=== PATIENT | male | born 1965 | race Caucasian/White ===

== ENCOUNTER → 2016-07-01 | Outpatient (REF) | payer OTHER ==
[~2016-07-01] MED LIST: /AMIO20TA OR; /LOR25TA PO; ADDE10CA3 PO; ADDE10TA OR; ADDE30CA PO; ADDERALL PO; AMLO10TAB OR; AMLO5TAB2 PO; AMPH20TA PO; ASPI325T OR; ASPI325T PO; ATEN25TA PO; ATEN50TA2 OR; ATEN50TA2 PO; ATOR40TA PO; BYST10TA PO; CITA40TA4 PO; COMBINATION CREAM TOP; COZA100T OR; FEOSOL OR; GABA300C2 PO; GEMF600T PO; HYDR12.55 PO; HYDR25TA6 PO; IBUP600T OR; LIPI20TA PO; LOSA100T36 PO; METF500T PO; NEUR100C PO; NORC7.5T PO; OMEP20CA3 PO; PERC5TAB8 OR; [UNRECOGNIZED DRUG - CODE] TD
== END ==
LOC: M LAB REF 16:14
PROVIDERS: ATTEND Nurse Practitioner Family
DX: E29.1 Testicular hypofunction (principal)

== ENCOUNTER → 2016-07-28 | Outpatient (REF) | payer OTHER ==
[2016-07-28 20:53] LABS: ANION GAP 8 MEQ/L (8-16); BLOOD UREA NITROGEN 14 MG/DL (7-18); CALCIUM LEVEL 9.6 MG/DL (8.5-10.1); CARBON DIOXIDE LEVEL 32 MEQ/L (21-32); CHLORIDE LEVEL 97 MEQ/L (98-107); CREATININE FOR GFR 0.94 MG/DL (0.70-1.30); GLOMERULAR FILTRATION RATE > 60.0 (>56); GLUCOSE, FASTING 122 MG/DL (70-105); POTASSIUM SERUM 4.2 MEQ/L (3.5-5.1); SODIUM LEVEL 137 MEQ/L (136-145)
== END ==
LOC: M LABDRWAD 09:10
PROVIDERS: ATTEND Nurse Practitioner Family
DX: M54.42 Lumbago with sciatica, left side (principal)

== ENCOUNTER → 2016-07-30 | Outpatient (CLI) | payer OTHER ==
--- NOTE | 2016-07-30 13:43 | REP ---
CT LUMBAR SPINE WITHOUT CONTRAST: HISTORY: Left sciatica. There is no disc bulge or herniation at the L1-2 level. The L1 nerves exit the neural foramina without compression. A diffuse disc bulge is present at the L2-3 level. There is minimal compression of the thecal sac. The L2 nerves exit the neural foramina without compression. A diffuse disc bulge is present at the L3-4 level. There is hypertrophy of the ligamenta flava and posterior articulating facets. These findings produce mild central canal stenosis. There is compression of the left L3 nerve in the neural foramen. The right L3 nerve exits the neural foramen without compression. A diffuse disc bulge and small central disc protrusion are present at the L4-5 level. There is hypertrophy of the ligamenta flava and posterior articulating facets. These findings produce mild central canal stenosis. There is compression of the right L4 nerve in the neural foramen. The left L4 nerve exits the neural foramen without compression. A diffuse disc bulge is present at the L5-S1 level. There is minimal compression of the thecal sac. There is hypertrophy of the posterior articulating facets. There is compression of the L5 nerves in the neural foramina. The L3-4 through L5-S1 intervertebral discs are decreased in height. Vacuum phenomenon is present at the L4-5 level. These findings are consistent with disc degeneration. There is no subluxation. A dorsal column stimulator enters the spinal canal at the T12-L1 level. IMPRESSION: 1. Diffuse disc bulge at the L2-3 and L5-S1 levels with minimal thecal sac compression. There is compression of the L5 nerves in the neural foramina. 2. Mild central canal stenosis at the L3-4 level secondary to disc bulge, ligamentous and facet hypertrophy. There is compression of the left L3 nerve in the neural foramen. 3. Mild central canal stenosis at the L4-5 level secondary to disc bulge, disc protrusion, ligamentous and facet hypertrophy. There is compression of the right L4 nerve in the neural foramen. Signed by Ferny Crawford MD 07/30/2016 01:55 P
== END ==
LOC: M RAD 12:45
PROVIDERS: ATTEND Nurse Practitioner Family
DX: M54.42 Lumbago with sciatica, left side (principal); M51.26 Other intervertebral disc displacement, lumbar region; M51.27 Other intervertebral disc displacement, lumbosacral region; M48.06 Spinal stenosis, lumbar region

== ENCOUNTER → 2016-08-11 | Outpatient (REF) | payer OTHER | LOC: M LABDRWAD 12:44 | PROVIDERS: ATTEND Nurse Practitioner Family | DX: E29.1 Testicular hypofunction (principal) ==

== ENCOUNTER → 2016-10-28 | Outpatient (CLI) | payer OTHER ==
[~2016-10-28] VITALS: Ht 180.3 cm; Wt 95.3 kg
[~2016-10-28] MED LIST changes: +CYCL10TA PO; +GLIM2TAB PO; +GLUCAGON FOR INJ 1 MG VIAL (J1610) As Ordered ONE; +IBUP800T23 PO; +NS 1,000 ML IV SCH; +PROPOFOL 200 MG/20 ML VIAL As Ordered ONE; +TESTPOW5 TOP; +TRAM50TA2 PO
--- NOTE | 2016-10-28 13:16 | ROOR ---
Patient Name: Rosa Sanches Procedure Date: 10/28/2016 12:17 PM Date of : 1965 Age: 50 Room: [facility] Gender: Male Note Status: Finalized Procedure: Colonoscopy Indications: Screening for colorectal malignant neoplasm Providers: Kj MONAE MD Referring MD: Julius Elliott NP Requesting Provider: Medicines: Monitored Anesthesia Care Complications: No immediate complications. Procedure: Pre-Anesthesia Assessment: - The heart rate, respiratory rate, oxygen saturations, blood pressure, adequacy of pulmonary ventilation, and response to care were monitored throughout the procedure. The Colonoscope was introduced through the anus and advanced to the cecum, identified by appendiceal orifice and ileocecal valve. The colonoscopy was performed without difficulty. The patient tolerated the procedure well. The quality of the bowel preparation was good. Findings: The perianal and digital rectal examinations were normal. A polypoid medium-sized mass was found in the proximal ascending colon. The mass measured three cm in length. The polyp was removed with a hot snare and The polyp was removed with a piecemeal technique using a hot snare. Polyp resection was likely incomplete, and the resected tissue was partially retrieved. To prevent bleeding after the polypectomy, six hemostatic clips were successfully placed. There was no bleeding at the end of the procedure. A 15 mm polyp was found in the splenic flexure. The polyp was semi-sessile. The polyp was removed with a piecemeal technique using a cold snare. Resection was complete, and retrieval was complete. Area was successfully injected with 5 mL Raquel ink for tattooing. A 10 mm polyp was found in the recto-sigmoid colon. The polyp was pedunculated. The polyp was removed with a hot snare. Resection and retrieval were complete. To prevent bleeding after the polypectomy, one hemostatic clip was successfully placed. There was no bleeding at the end of the procedure. Two sessile polyps were found in the sigmoid colon. The polyps were 3 to 4 mm in size. These polyps were removed with a cold snare. Resection and retrieval were complete. Impression: - Likely benign polypoid mass/tumor in the proximal ascending colon. Tissue was partially removed. Clips were placed. - One 15 mm polyp at the splenic flexure, removed piecemeal using a cold snare. Resected and retrieved. tattooed/Injected. - One 10 mm polyp at the recto-sigmoid colon, removed with a hot snare. Resected and retrieved. Clip was placed. - Two 3 to 4 mm polyps in the sigmoid colon, removed with a cold snare. Resected and retrieved. Recommendation: - If the pathology report is benign, then repeat colonoscopy for surveillance after piecemeal polypectomy in 4 months. - If the pathology report is malignant, then refer to a surgeon. - Telephone endoscopist for pathology results in 2 weeks. - No ibuprofen, naproxen, or other non-steroidal anti-inflammatory drugs for 10 days after polyp removal. Kj Monae MD Kj MONAE MD 10/28/2016 1:16:04 PM This report has been signed electronically. Number of Addenda: 0 Note Initiated On: 10/28/2016 12:17 PM Estimated Blood Loss: Estimated blood loss: none.
[2016-10-28 13:37] VITALS: BP 139/100
== END | disposition home or self-care (01) ==
LOC: M OPP 10:55
PROVIDERS: ATTEND Internal Medicine Gastroenterology
DX: Z12.11 Encounter for screening for malignant neoplasm of colon (principal); D49.0 Neoplasm of unspecified behavior of digestive system; D12.3 Benign neoplasm of transverse colon; D12.7 Benign neoplasm of rectosigmoid junction; D12.5 Benign neoplasm of sigmoid colon; I10 Essential (primary) hypertension; E78.5 Hyperlipidemia, unspecified; R60.0 Localized edema; E11.9 Type 2 diabetes mellitus without complications; R12 Heartburn; R06.09 Other forms of dyspnea; M19.90 Unspecified osteoarthritis, unspecified site; M54.9 Dorsalgia, unspecified; Z87.09 Personal history of other diseases of the respiratory system; Z87.39 Personal history of other diseases of the musculoskeletal system and connective tissue; Z79.899 Other long term (current) drug therapy; Z79.84 Long term (current) use of oral hypoglycemic drugs; Z80.0 Family history of malignant neoplasm of digestive organs

== ENCOUNTER → 2016-11-02 | Outpatient (CLI) | payer OTHER ==
[~2016-11-02] MED LIST changes: -GLUCAGON FOR INJ 1 MG VIAL (J1610) As Ordered ONE; -NS 1,000 ML IV SCH; -PROPOFOL 200 MG/20 ML VIAL As Ordered ONE
[2016-11-02 11:29] LABS: INR 0.93
[2016-11-02 11:30] LABS: MEAN CORPUSCULAR HEMOGLOBIN 33.5 pg (27.0-33.0); MEAN CORPUSCULAR HGB CONC 36.1 g/dl (32.0-36.5); MEAN CORPUSCULAR VOLUME 92.7 fl (80.0-96.0); RED CELL DISTRIBUTION WIDTH 13.3 % (11.5-14.5); WHITE BLOOD COUNT 8.9 K/mm3 (4.0-10.0)
[2016-11-02 12:22] LABS: ALBUMIN 3.9 GM/DL (3.2-5.2); ALBUMIN/GLOBULIN RATIO 1.18 (1.00-1.93); ALKALINE PHOSPHATASE 111 U/L (45-117); ALT/SGPT 28 U/L (12-78); ANION GAP 12 MEQ/L (8-16); AST/SGOT 16 U/L (15-37); BILIRUBIN,TOTAL 0.8 MG/DL (0.2-1.0); BLOOD UREA NITROGEN 9 MG/DL (7-18); CALCIUM LEVEL 9.5 MG/DL (8.5-10.1); CARBON DIOXIDE LEVEL 29 MEQ/L (21-32); CHLORIDE LEVEL 96 MEQ/L (98-107); CREATININE FOR GFR 0.89 MG/DL (0.70-1.30); GLOMERULAR FILTRATION RATE > 60.0 (>56); GLUCOSE, FASTING 176 MG/DL (70-105); POTASSIUM SERUM 3.9 MEQ/L (3.5-5.1); SODIUM LEVEL 137 MEQ/L (136-145); TOTAL PROTEIN 7.2 GM/DL (6.4-8.2)
--- NOTE | 2016-11-03 05:49 | ECGEPIP ---
Stationary ECG Study [facility] Test Date: 2016-11-02 Pat Name: RICHARD COLES Department: [facility] Room: - Gender: M [employer]: : 1965 Requested By: Uma Terry Order Number: [id number] Reading MD: Neil Lange Measurements Intervals [place] Rate: 78 P: 62 ND: 193 QRS: 38 QRSD: 96 T: 45 QT: 353 QTc: 403 Interpretive Statements Normal sinus rhythm Normal EKG Comparison tracing not on file Electronically Signed On 11-03-2016 5:49:40 EDT by Neil Lange
== END ==
LOC: M ADMPAT 09:27
PROVIDERS: ATTEND Orthopaedic Surgery
DX: M16.12 Unilateral primary osteoarthritis, left hip (principal)

== ENCOUNTER 2016-11-15 10:12 | Inpatient (IN) | payer OTHER ==
[2016-11-02 10:33] VITALS: BP 140/86
--- NOTE | 2016-11-09 19:30 | HPE ---
DATE OF ADMISSION: 11/15/2016 CHIEF COMPLAINT: Left hip pain. HISTORY OF PRESENT ILLNESS: Mr. Walton is a pleasant 50-year-old male with progressively worsening left hip pain and stiffness. He has failed to improve with conservative treatment. He has elected for surgery for his continued symptoms. He has pain with weightbearing activities and his activities of daily living. X-rays of his hip are notable for advanced osteoarthritis of the left hip joint. He has consented for a left total hip arthroplasty by Dr. Harrison Parada. Medical optimization was performed by Dr. Early. ALLERGIES: NO KNOWN DRUG ALLERGIES. CURRENT MEDICATIONS: Atenolol 50 mg a day Gemfibrozil 600 mg once a day metformin 1000 mg once a day cyclobenzaprine 10 mg three times a day tramadol 50 mg every 6 hours as needed ibuprofen 800 mg three times a day citalopram 40 mg once a day atorvastatin 40 mg a day hydrochlorothiazide 12.5 mg a day amlodipine 5 mg a day glimepiride 1 mg a day omeprazole 20 mg a day testosterone 50 mg a day generic version of Adderall 30 mg PAST MEDICAL HISTORY: Includes diabetes, hypertension, history of benign lung tumor high cholesterol. PAST SURGICAL HISTORY: Includes left knee arthroscopy left lower lobe lobectomy and right shoulder rotator cuff repair. 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 FAMILY HISTORY: Noncontributory. REVIEW OF SYSTEMS: This patient denies chest pain, heart palpitations, cough, wheezing, difficulty breathing and shortness of breath. He denies abdominal pain, nausea, vomiting, diarrhea or constipation. He denies recent upper respiratory infection or urinary tract infection symptoms. He does complain of persistent pain in his left hip and pain with weightbearing activities in his left hip. PHYSICAL EXAMINATION: GENERAL: He is well-nourished, well-developed in no acute distress, adult male. He walks with a moderate limp favoring the left lower extremity. He is not using assistive devices. VITAL SIGNS: He is 5 feet 11, weighs 210 pounds with a temperature of 98.0, blood pressure 159/82, pulse of 80 and respirations of 16. NECK: Supple without adenopathy or jugular venous distension. There were no carotid bruits appreciated upon auscultation. LUNGS: Clear to auscultation with absent breath sounds in the left lower lung villavicencio. HEART: Regular rate and rhythm. ABDOMEN: Bowel sounds were present. EXTREMITIES: Examination of the hip revealed intact skin. The patient had irritability and decreased range of motion with internal, external rotation of the left hip. The limb is neurovascularly intact. LABORATORY DATA: EKG showed normal sinus rhythm at 78 beats per minute. Chest x-ray Showed no acute cardiopulmonary disease processes stable changes from his prior lobectomy. Urine culture showed no clinically significant growth. Urinalysis (UA) showed 1+ protein, 1+ glucose, otherwise within normal limits with a specific gravity of 1.012, glucose 176, BUN 9, creatinine 0.89, sodium 137, potassium 3.9. CBC showed mean corpuscular hemoglobin of 33.5, otherwise within normal limits. SED rate was 34. Protime 12.6, INR 0.93. IMPRESSION: Symptomatic osteoarthritis of the left hip joint. PLAN: Consented for a left total hip arthroplasty by Dr. Harrison elizabeth and on. My preceptor for this patient encounter was Dr. Parada . The preceptor was physically present in the building during the encounter and was fully available. As needed, all aspects of the patient interview, examination, medical decision making process, and medical care plan development were reviewed and approved by the preceptor. The preceptor is aware and concurs with the plan as stated in the body of this note and will attest to such by his/her cosignature.
[~2016-11-15] VITALS: Ht 180.3 cm; Wt 95.2 kg
[2016-11-15] VITALS (7 sets, daily range): BP systolic 131–163; BP diastolic 72–85; O2SAT 99
[2016-11-15] MEDS: TRANEXAMIC ACID 100 MG/ML 10ML VIAL As Ordered ONE ×2 (07:56→12:45)
[2016-11-15] MEDS: BUPIVACAINE LIPOSOME/PF 1.3% 20 ML VIAL (13.3MG/ML)(EXPAREL) As Ordered ONE ×2 (07:57→12:46)
[2016-11-15] MEDS: EPINEPHrine INJ 1 MG/ML 1ML AMP As Ordered ONE ×2 (07:57→12:45)
[~2016-11-15 10:12] MED LIST changes: +ceFAZolin 1GM INJ (J0690) As Ordered ONE
[2016-11-15] MEDS ORDERED: LR 1,000 ML IV ONE (10:30)
[2016-11-15] MEDS ORDERED: LR 1,000 ML IV SCH ×2 (10:30→14:45)
[2016-11-15] MEDS ORDERED: ACETAMINOPHEN 500 MG TAB PO ONE (11:00)
[2016-11-15] MEDS ORDERED: fentaNYL 100 MCG/2 ML INJECTION (J3010) As Ordered ONE (12:41)
[2016-11-15] MEDS ORDERED: GLYCOPYRROLATE INJ 0.2 MG/ML 2 ML VIAL As Ordered ONE (12:41)
[2016-11-15] MEDS ORDERED: MIDAZOLAM INJ 2 MG/2 ML VIAL (J2250) As Ordered ONE ×2 (12:41→13:01)
[2016-11-15] MEDS ORDERED: dexameTHASONE 4 MG/ML 1ML VIAL (J1100) As Ordered ONE (12:41)
[2016-11-15] MEDS ORDERED: ONDANSETRON 4MG/2ML VIAL (J2405) As Ordered ONE (12:41)
[2016-11-15] MEDS ORDERED: PROPOFOL 500 MG/50 ML VIAL As Ordered ONE (12:41)
[2016-11-15] MEDS ORDERED: ePHEDrine SULFATE 25 MG/5 ML(5MG/ML) SYRINGE As Ordered ONE (12:42)
[2016-11-15] MEDS ORDERED: METOCLOPRAMIDE INJ 10MG/2ML VIAL (J2765) As Ordered ONE (12:42)
[2016-11-15] MEDS ORDERED: PHENYLephrine HCL 500 MCG/5 ML (100MCG/ML) SYRINGE (J2370) As Ordered ONE (12:42)
[2016-11-15] MEDS ORDERED: PHENYLEPHRINE INJ 10MG/ML VIAL (J2370) As Ordered ONE (12:55)
[2016-11-15] MEDS ORDERED: PROPOFOL 200 MG/20 ML VIAL As Ordered ONE ×2 (13:30→14:02)
[2016-11-15] MEDS ORDERED: MORPHINE 1MG/ML IN 0.9% NACL 100ML IV BAG As Ordered ONE (14:07)
[2016-11-15] MEDS ORDERED: NALOXONE INJ 0.4 MG/1 ML VIAL (J2310) IV PRN (14:45)
[2016-11-15] MEDS ORDERED: NALBUPHINE HCL 10 MG/ML AMP (J2300) IV PRN (14:45)
[2016-11-15] MEDS ORDERED: fentaNYL 100 MCG/2 ML INJECTION (J3010) IV PRN (14:45)
[2016-11-15] MEDS ORDERED: ONDANSETRON 4MG/2ML VIAL (J2405) IV PRN ×2 (14:45)
[2016-11-15] MEDS ORDERED: FLEET ENEMA PR PRN (14:45)
[2016-11-15] MEDS ORDERED: ACETAMINOPHEN TAB 650MG DOSE (2X325MG) PO PRN (14:45)
[2016-11-15] MEDS ORDERED: diphenhydrAMINE INJ 50MG/ML VIAL (J1200) IV PRN (14:45)
[2016-11-15] MEDS ORDERED: EPIDURAL/PCA KEYS XX PRN (14:45)
[2016-11-15] MEDS ORDERED: MORPHINE 1MG/ML IN 0.9% NACL 100ML IV BAG IV PRN (14:45)
[2016-11-15] MEDS ORDERED: WARFARIN SOD 5 MG TAB PO SCH (17:00)
[2016-11-15] MEDS ORDERED: GLUCAGON FOR INJ 1 MG VIAL (J1610) SC PRN (17:00)
[2016-11-15] MEDS ORDERED: GLUCOSE 4 GM CHEW TABLET PO PRN (17:00)
[2016-11-15] MEDS ORDERED: DEXTROSE 50% 50 ML SYRINGE IV PRN (17:00)
--- NOTE | 2016-11-15 17:53 | CR ---
DATE OF CONSULTATION: 11/15/2016 CONSULTATION REQUESTED BY: Dr. Parada PRIMARY CARE: Dr. Early REASON FOR CONSULTATION: Medical management. HISTORY OF PRESENT ILLNESS: Mr. Walton is a 50-year-old male with multiple past medical history who underwent left total hip arthroplasty by Dr. Parada this afternoon. The patient expressed that he has been experiencing pain on the left hip for the past year. The patient states that the pain started suddenly one year ago , mostly on the back and left hip. The patient expressed that the pain increased by ambulation and sitting for a long time. The patient expressed that at first it was thought that the pain is mostly due to the back pain. The patient was started on Tramadol and ibuprofen to control the pain. The patient also had a CT of the back, which indicated bulging discs in several level; however, pain continued. The patient was referred to orthopedics by the primary. Orthopedic ordered x-ray of the hip, which indicated advanced osteoarthritis of the left hip joint. The patient was consulted for the left hip arthroplasty by Dr. Parada, which was scheduled for today. Two months ago the patient also had one steroid shot, which helped him with the pain. The patient was medically optimized by his primary (Dr. Early). Postoperatively, the patient denies tachycardia, chest pain, lightheadedness, dizziness, however, the patient has mild drowsiness secondary to pain medication, as well as anesthesiology. The patient did not have a fever, chills. The patient's blood pressure and heart rate is in the normal range. ALLERGIES: No known drug allergies. PAST MEDICAL HISTORY: 1. Hypertension. 2. 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 Maharaj). 3. Esophageal reflux. 4. Attention deficit disorder. 5. Hyperlipidemia. PAST SURGICAL HISTORY 1. Lobectomy of left lower lobe by Dr. Maharaj in 2010. 2. Dorsal column stimulator by Dr. Pereira. 3. Left knee arthroplasty by Dr. Parada. 4. Rotator cuff repair on the right side by Dr. Parada in 2014. 5. Colonoscopy, which was done on 03/10/2016, which was benign. HOME MEDICATIONS: - amlodipine besylate 5 mg daily - Adderall XR 30 mg one tablet by mouth twice a day - Atenolol 50 mg by mouth daily - atorvastatin calcium 40 mg by mouth daily - cyclobenzaprine 10 mg by mouth three times a day as needed for muscle spasm - gemfibrozil 600 mg by mouth daily - glimepiride 0.5 mg by mouth daily - hydrochlorothiazide 12.5 mg by mouth daily - ibuprofen 800 mg by mouth every 8 hours as needed for pain - metformin 1000 mg by mouth daily - omeprazole 20 mg by mouth daily - testosterone 5 mg topically daily - tramadol 50 mg by mouth as needed for pain SOCIAL HISTORY: The patient expressed that at this time he lives with his . The patient has one son who is healthy. The patient also has a stepchild. The patient expressed that he drinks about two to three beers daily for the past 40 years. The patient stopped smoking in 2010; however, before that the patient was smoking for 30 years, about one pack per day. The patient denies any drug use at this time; however, 40 years ago the patient used to smoke marijuana. 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 The patient has not traveled outside of the [place]. FAMILY HISTORY: The patient has two brothers and one sister. One brother at age 32 due to heart disease. The patient's other brother has diabetes. The patient's father at age 78 due to biliary abnormalities. The patient's mother due to colon cancer, rectal cancer, and lung cancer at age 75. REVIEW OF SYSTEMS: GENERAL: The patient denies fever, chills, night sweats, weight loss, weight gain. HEENT: Patient denies acute vision or hearing changes. Patient also denies problem with chewing food, sinusitis or headache. NECK: Patient denies lumps, bumps, decreased range of motion of his neck. HEART: Patient denies chest pain, palpitations, racing or skipping heart beat. LUNGS: Patient denies shortness of breath, wheezing, or coughing. ABDOMEN: Patient denies abdominal pain, nausea, vomiting, diarrhea, constipation , melena, hematochezia or hematemesis. NEUROLOGIC: The patient denies history of TIA, seizure type activity. PHYSICAL EXAMINATION: VITAL SIGNS: Temperature 97.2, pulse 53, respiratory 18, Blood pressure 109/63. Pulse oximetry 98 on 2 liter nasal cannula. GENERAL APPEARANCE: Patient was lying in bed in no acute distress. Patient is awake, alert and oriented to time, place or person. HEENT: Normocephalic, atraumatic. Pupils are equal. Oral mucosa is moist. NECK: Soft, supple. No lymphadenopathy, thyromegaly or jugular venous distention (JVD). HEART: Regular rate and rhythm. Normal S1, S2. LUNGS: Clear breath sounds bilaterally. Good air movement. ABDOMEN: Soft, nontender. Positive bowel sounds in all quadrants. EXTREMITIES: The patient has orthopedic surgical wound dressing on the left hip, which is intact, clean. No drainage or bleeding was noticed in this site. The patient has decreased range of motion of the left lower extremity secondary to orthopedic surgery. The patient also has pain and tenderness at the site of surgery, which is proportional to the site of surgery. The patient has normal range of motion on the right lower extremity with normal sensation. No lower extremity edema. +2 pulses in both lower extremities. NEUROLOGIC: Cranial nerves II through XII intact. No focal deficiencies. LABORATORY DATA: Results pending at this time. IMAGING TECHNIQUE: X-ray of the left hip result is pending at this time. ASSESSMENT AND PLAN: 1. Left total hip arthroplasty, which was done by Dr. Parada. At this time, the patient has been started on cefazolin 2 grams IV every 6 hours, as well as warfarin, which is managed by orthopedics. The patient also is on pain management, which is managed by orthopedics. 2. Hypertension. We will continue patient with the home dosage of Norvasc (5 mg by mouth daily), hydrochlorothiazide (12.5 mg by mouth daily), and atenolol (50 mg by mouth daily) tomorrow with holding parameters. At this time, the patient' s blood pressure is stable. 3. Esophageal reflux. We will continue the patient on home dosage of Prilosec 20 mg by mouth daily. 4. Attention deficit disorder. The patient was on Adderall; however, the patient expressed that he is not taking his medication anymore. At this time, the patient is asymptomatic. 5. Hyperlipidemia. We will continue the patient on home dose of Lipitor and gemfibrozil (600 mg by mouth daily). 6. Diabetes mellitus. At home, the patient is on metformin and glimepiride; however, we have held these medications, and we have started the patient on sliding scale. We will continue the patient on consistent carbohydrate diet. At this time, the patient is tolerating orally well. 7. Deep vein thrombosis (DVT) prophylaxis. The patient is on warfarin, which is managed by orthopedics. 8. History of chest wall tumor. Based on documentation from the primary care, this is benign neurofibroma by the lung biopsy, which was done by Dr. Maharaj in 2010; however, this needs to be followed as an outpatient by the primary care. 9. Alcohol abuse: patient expressed that he drinks about 2-3 cans of beer every day for past 40 years. At this time patient does not have sign and symptoms of alcohol withdraw. We will continue monitoring him. My preceptor for this patient encounter was Dr. Valadez. The preceptor was physically present in the building during the encounter and was fully available. As needed, all aspects of the patient interview, examination, medical decision making process, and medical care plan development were reviewed and approved by the preceptor. The preceptor is aware and concurs with the plan as stated in the body of this note and will attest to such by his/her cosignature. USHA
[2016-11-15 17:58] LABS: BASO % 0.2 % (0.0-1.0); EOS % 0.4 % (0.0-3.0); LARGE UNSTAINED CELL # 0.1 K/mm3 (0.0-0.4); LARGE UNSTAINED CELL % 0.9 % (0.0-4.0); LYMPH # 0.7 K/mm3 (1.5-4.5); MEAN CORPUSCULAR HEMOGLOBIN 33.1 pg (27.0-33.0); MEAN CORPUSCULAR VOLUME 94.5 fl (80.0-96.0); MONO # 0.2 K/mm3 (0.0-0.8); NEUTROPHILS # 10.5 K/mm3 (1.8-7.7); NEUTROPHILS % 90.5 % (36.0-66.0); PLATELET COUNT, AUTOMATED 249 k/mm3 (150-450); RED CELL DISTRIBUTION WIDTH 13.3 % (11.5-14.5); WHITE BLOOD COUNT 11.6 K/mm3 (4.0-10.0)
[2016-11-15 18:02] LABS: INR 1.01
[2016-11-15 18:08] LABS: ALBUMIN 3.3 GM/DL (3.2-5.2); ALBUMIN/GLOBULIN RATIO 1.06 (1.00-1.93); ALKALINE PHOSPHATASE 67 U/L (45-117); ALT/SGPT 20 U/L (12-78); ANION GAP 6 MEQ/L (8-16); AST/SGOT 21 U/L (15-37); BILIRUBIN,TOTAL 0.5 MG/DL (0.2-1.0); BLOOD UREA NITROGEN 14 MG/DL (7-18); CALCIUM LEVEL 8.5 MG/DL (8.5-10.1); CARBON DIOXIDE LEVEL 30 MEQ/L (21-32); CHLORIDE LEVEL 99 MEQ/L (98-107); GLOMERULAR FILTRATION RATE > 60.0 (>56); GLUCOSE, FASTING 192 MG/DL (70-105); POTASSIUM SERUM 4.4 MEQ/L (3.5-5.1); SODIUM LEVEL 135 MEQ/L (136-145); TOTAL PROTEIN 6.4 GM/DL (6.4-8.2)
[2016-11-15] MEDS: LR 1,000 ML IV SCH (18:48)
[2016-11-15] MEDS: HumaLOG INSULIN (NovoLOG) PER UNIT SC SCH ×2 (18:48→20:12)
[2016-11-16 00:30] VITALS: BP 154/86
[2016-11-16] MEDS: LR 1,000 ML IV SCH (03:15)
[2016-11-16 06:00] VITALS: BP 148/77
[2016-11-16] MEDS ORDERED: PERCOCET 5MG/325MG TAB PO PRN (07:00)
[2016-11-16] MEDS ORDERED: ONDANSETRON 4 MG TAB (S0181) PO PRN (07:00)
[2016-11-16 07:20] LABS: MEAN CORPUSCULAR HEMOGLOBIN 33.3 pg (27.0-33.0); MEAN CORPUSCULAR VOLUME 95.1 fl (80.0-96.0); RED CELL DISTRIBUTION WIDTH 13.3 % (11.5-14.5); WHITE BLOOD COUNT 11.2 K/mm3 (4.0-10.0)
[2016-11-16 07:34] LABS: INR 1.03
[2016-11-16 07:42] LABS: ANION GAP 6 MEQ/L (8-16); BLOOD UREA NITROGEN 11 MG/DL (7-18); CALCIUM LEVEL 8.7 MG/DL (8.5-10.1); CARBON DIOXIDE LEVEL 31 MEQ/L (21-32); CHLORIDE LEVEL 98 MEQ/L (98-107); CREATININE FOR GFR 0.85 MG/DL (0.70-1.30); GLOMERULAR FILTRATION RATE > 60.0 (>56); GLUCOSE, FASTING 171 MG/DL (70-105); SODIUM LEVEL 135 MEQ/L (136-145)
[2016-11-16] MEDS: MOM 30ML SUSPENSION UDC PO SCH (08:44)
[2016-11-16] MEDS: MIRALAX *UNIT DOSE* 17GM PACKET PO SCH (08:45)
[2016-11-16] MEDS: SENOKOT S TAB PO SCH ×2 (08:45→20:52)
[2016-11-16] MEDS: amLODIPine 5 MG TAB PO SCH (08:50)
[2016-11-16] MEDS: OMEPRAZOLE 20 MG CAP PO SCH (08:50)
[2016-11-16] MEDS: ATENOLOL 50 MG TAB PO SCH (08:51)
[2016-11-16] MEDS: hydroCHLOROthiazide 12.5 MG CAPSULE PO SCH (08:51)
[2016-11-16] MEDS: PERCOCET 5MG/325MG TAB PO PRN ×4 (08:51→22:33)
[2016-11-16] MEDS: ATORVASTATIN 20 MG TAB PO SCH (08:51)
[2016-11-16] MEDS: GEMFIBROZIL 600 MG TAB PO SCH (08:51)
[2016-11-16] MEDS: HumaLOG INSULIN (NovoLOG) PER UNIT SC SCH ×4 (08:52→20:52)
--- NOTE | 2016-11-16 09:15 | RO ---
DATE OF PROCEDURE: 11/15/2016 PREPROCEDURE DIAGNOSES: Osteonecrosis and osteoarthritis of the left hip. POSTPROCEDURE DIAGNOSES: Osteonecrosis and osteoarthritis of the left hip. PROCEDURE: Left total hip arthroplasty using a size 8 Coffee stem standard offset with a 1.5 neck length and a 52 mm acetabular Gription cup with a 36 mm polyethylene neutral liner. The prosthesis was made by [employer]. SURGEON: Uma Parada MD PIGMENT MIXER: JANETH Esquivel ANESTHESIA: Spinal. ESTIMATED BLOOD LOSS: 250 mL. SPECIMENS: Femoral head. COMPLICATIONS: None. FINDINGS: Femoral head showed that almost the entire surface of the cartilage covering was unstable and fragmenting off the underlying femoral head consistent with severe symptomatic osteonecrosis. DESCRIPTION OF PROCEDURE: Antibiotics were given intravenously preoperatively, and then a spinal anesthetic was induced, and he was placed in a lateral decubitus position after a Plasencia catheter was placed. A [place] hip position was utilized. His down leg was well padded, especially the perineal nerve, and the axillary roll utilized. His left hip area was then carefully prepped and draped in the usual sterile fashion. After appropriate time-out, a longitudinal incision was made for a direct lateral approach to the hip. Bovie cautery was used to coagulate crossing vessels down to the tensor fascia. The tensor fascia was then divided. Then, we split the gluteus medius, the anterior one-third, and posterior two-third junctions. Then, we carefully dissected down through the gluteus minimus and the anterior hip capsule and dissected them off the proximal femur, as we externally rotated the hip, then dislocated it anteriorly; and it was noteworthy that the cartilage was completely unstable along the entire femoral head. A starter reamer was placed in the pyriformis fossa, followed by the canal-finding reamer, then the lateralizing reamer. Then, we began reaming up to a size 7 reamer. A femoral osteotomy was then performed using the femoral neck-cutting guide and then the saw. We then began broaching up to a size #8 broach, and it fit nicely at this point. We were about a fingerbreadth above the lesser trochanter. We then exposed the acetabulum and performed a labral excision 360 degrees and then began reaming, beginning with a 48 reamer up to a size 51. The trial 52 fit nicely. Thus, I felt that would be the appropriate size. We copiously irrigated out the acetabulum, then impacted a 52 Gription cup, and it fit nicely. We used the extramedullary jig to be sure we were at appropriate abduction, as well as anteversion. The cups was inserted, and then it seated nicely, and the central hole eliminator was placed. We did not need secondary screw fixation. We copiously irrigated and exposed the proximal femur, placed the trial #8 broach, and then the standard 1.5 neck was placed, followed by the 32 trial head, and then we reduced the hip; and he was very stable to flexion, internal rotation and extension and external rotation with just a trace of a telescoping. Thus, I did not think we needed any other size componentry; and, thus, the trial broach and femoral head were removed; and we copiously irrigated the femoral canal, placed the real #8 stem, irrigated out the acetabulum, placed the #32 x 1.5 head, made sure it was impacted appropriately, and irrigated the hip joint once again, and reduced the hip. We then closed the gluteus medius anterior hip capsule back anatomically with interrupted #1 polydioxanone suture (PDS) sutures, irrigating between layers, and then closed the tensor fascia with a running #1 Stratafix, irrigating between layers, closed the deep subdermal tissues with interrupted #2-0 PDS sutures. The skin was closed with joy, covered by Adaptic dry sterile bulky dressing. He was then turned supine, then transferred to the recovery room in stable condition. There were no intraoperative complications.
--- NOTE | 2016-11-16 09:25 | REP ---
Clinical: Status post arthroplasty. Technique: AP and cross-table lateral views. Findings: The patient is status post left hip replacement with normal positioning and appearance to the femoral and acetabular components. Overlying postsurgical changes appreciated. Impression: Satisfactory left hip replacement radiographs. Signed by Rico Stewart MD 11/16/2016 09:16 A
[2016-11-16 10:00] VITALS: BP 145/92
[2016-11-16 14:00] VITALS: BP 126/77
--- NOTE | 2016-11-16 16:23 | IPNPDOC ---
Subjective Date Seen The patient was seen on 11/16/16. Subjective Chief Complaint/HPI The patient is a 50-year-old male admitted with a reason for visit of Arthritis Left Hip. General: Denies: Chills, Night Sweats Constitutional: Denies: Chills, Fever Eyes: Denies: Pain, Vision change ENT: Denies: Head Aches, Ear Pain Skin: Denies: Rash, Lesions Pulmonary: Denies: Dyspnea, Cough Cardiovascular: Denies: Chest Pain, Palpitations Gastrointestinal: Denies: Nausea, Vomiting Genitourinary: Denies: Dysuria, Frequency Hematologic: Denies: Bruising, Bleeding Excessively Objective Physical Examination General Exam: Positive: Alert, Cooperative, No Acute Distress ENT Exam: Positive: Atraumatic, Mucous membr. moist/pink Neck Exam: Negative: JVD Chest Exam: Positive: Clear to auscultation, Normal air movement Heart Exam: Positive: Rate Normal, Normal S1, Normal S2 Abdomen Exam: Positive: Soft, Negative: Tenderness Extremity Exam: Positive: Other (Left Hip with limited ROM 2/2 recent surgery, neurovascularly intact distally) Psych Exam: Positive: Oriented x 3 Assessment /Plan Plan/VTE VTE Prophylaxis Ordered?: Yes Plan S/P Left Hip Replacement Pain Mgmt, DVT prophylaxis as per surgery Hypertension Cont Lisinopril Diabetes Mellitus Continue insulin sliding scale Dyslipidemia Continue statin GERD Pepcid VS, I&O, 24H, Fishbone Vital Signs/I&O Vital Signs Date Time Temp Pulse Resp B/P (MAP) Pulse Ox O2 Delivery O2 Flow Rate FiO2 11/16/16 14:29 16 11/16/16 14:00 96.8 71 126/77 (93) 98 Room Air 11/16/16 06:00 2.0 I&O- Last 24 Hours up to 6 AM 11/16/16 06:00 Intake Total 3590 ml Output Total 825 ml Balance 2765 ml Laboratory Data 24H LABS Laboratory Tests 2 11/15/16 16:54: Bedside Glucose (Misc Panel) 170H 11/15/16 17:27: White Blood Count 11.6H, Red Blood Count 4.06L, Hemoglobin 13.4L, Hematocrit 38.4L, Mean Corpuscular Volume 94.5, Mean Corpuscular Hemoglobin 33.1H, Mean Corpuscular Hemoglobin Concent 35.0, Red Cell Distribution Width 13.3, Platelet Count 249, Neutrophils (%) (Auto) 90.5H, Lymphocytes (%) (Auto) 6.0L, Monocytes (%) (Auto) 2.0, Eosinophils (%) (Auto) 0.4, Basophils (%) (Auto) 0.2, Neutrophils # (Auto) 10.5H, Lymphocytes # (Auto) 0.7L, Monocytes # (Auto) 0.2, Eosinophils # (Auto) 0.0, Basophils # (Auto) 0.0, Large Unclassified Cells % 0.9 , Large Unclassified Cells # 0.1, Prothrombin Time 13.4, Prothromb Time International Ratio 1.01, Anion Gap 6L, Glomerular Filtration Rate > 60.0, Blood Urea Nitrogen 14, Creatinine 0.90, Sodium Level 135L, Potassium Level 4.4 , Chloride Level 99, Carbon Dioxide Level 30, Calcium Level 8.5, Aspartate Amino Transf (AST/SGOT) 21, Alanine Aminotransferase (ALT/SGPT) 20, Alkaline Phosphatase 67, Total Bilirubin 0.5, Total Protein 6.4, Albumin 3.3, Albumin/ Globulin Ratio 1.06 11/15/16 20:00: Bedside Glucose (Misc Panel) 238H 11/16/16 07:08: Prothrombin Time 13.6, Prothromb Time International Ratio 1.03, Anion Gap 6L, Glomerular Filtration Rate > 60.0, Blood Urea Nitrogen 11, Creatinine 0.85, Sodium Level 135L, Potassium Level 4.0, Chloride Level 98, Carbon Dioxide Level 31, Calcium Level 8.7 11/16/16 11:27: Bedside Glucose (Misc Panel) 130H CBC/BMP Laboratory Tests 11/15/16 17:27 Red Blood Count 4.06 L, Mean Corpuscular Volume 94.5, Mean Corpuscular Hemoglobin 33.1 H, Mean Corpuscular Hemoglobin Concent 35.0, Red Cell Distribution Width 13.3, Neutrophils (%) (Auto) 90.5 H, Lymphocytes (%) (Auto) 6.0 L, Monocytes (%) (Auto) 2.0, Eosinophils (%) (Auto) 0.4, Basophils (%) (Auto ) 0.2, Neutrophils # (Auto) 10.5 H, Lymphocytes # (Auto) 0.7 L, Monocytes # ( Auto) 0.2, Eosinophils # (Auto) 0.0, Basophils # (Auto) 0.0, Calcium Level 8.5, Aspartate Amino Transf (AST/SGOT) 21, Alanine Aminotransferase (ALT/SGPT) 20, Alkaline Phosphatase 67, Total Bilirubin 0.5, Total Protein 6.4, Albumin 3.3 11/16/16 07:08 Red Blood Count 3.94 L, Mean Corpuscular Volume 95.1, Mean Corpuscular Hemoglobin 33.3 H, Mean Corpuscular Hemoglobin Concent 35.0, Red Cell Distribution Width 13.3, Calcium Level 8.7 SAY METZGER MD Nov 16, 2016 16:23
[2016-11-16] MEDS ORDERED: WARFARIN SOD 5 MG TAB PO ONE (17:00)
[2016-11-16 22:00] VITALS: BP 136/67
[2016-11-17 06:00] VITALS: BP 177/88
[2016-11-17] MEDS: PERCOCET 5MG/325MG TAB PO PRN (06:30)
[2016-11-17 06:55] LABS: MEAN CORPUSCULAR HEMOGLOBIN 32.6 pg (27.0-33.0); MEAN CORPUSCULAR HGB CONC 34.6 g/dl (32.0-36.5); MEAN CORPUSCULAR VOLUME 94.2 fl (80.0-96.0); RED CELL DISTRIBUTION WIDTH 13.4 % (11.5-14.5); WHITE BLOOD COUNT 9.5 K/mm3 (4.0-10.0)
[2016-11-17 07:03] LABS: INR 1.1
[2016-11-17 07:07] LABS: ANION GAP 5 MEQ/L (8-16); BLOOD UREA NITROGEN 11 MG/DL (7-18); CALCIUM LEVEL 8.8 MG/DL (8.5-10.1); CARBON DIOXIDE LEVEL 36 MEQ/L (21-32); CHLORIDE LEVEL 96 MEQ/L (98-107); CREATININE FOR GFR 0.85 MG/DL (0.70-1.30); GLOMERULAR FILTRATION RATE > 60.0 (>56); GLUCOSE, FASTING 140 MG/DL (70-105); POTASSIUM SERUM 3.8 MEQ/L (3.5-5.1); SODIUM LEVEL 137 MEQ/L (136-145)
[2016-11-17] MEDS ORDERED: COUM2.5T11 PO (08:00)
[2016-11-17] MEDS ORDERED: PERC5TAB6 PO (08:00)
[2016-11-17] MEDS ORDERED: ENOXAPARIN 40 MG/0.4 ML SYRINGE (J1650) SC ONE (08:00)
[2016-11-17 08:19] VITALS: BP 177/88
[2016-11-17] MEDS: hydroCHLOROthiazide 12.5 MG CAPSULE PO SCH (08:19)
[2016-11-17] MEDS: ATORVASTATIN 20 MG TAB PO SCH (08:19)
[2016-11-17] MEDS: GEMFIBROZIL 600 MG TAB PO SCH (08:19)
[2016-11-17] MEDS: ATENOLOL 50 MG TAB PO SCH (08:19)
[2016-11-17] MEDS: MOM 30ML SUSPENSION UDC PO SCH (08:20)
[2016-11-17] MEDS: SENOKOT S TAB PO SCH (08:20)
[2016-11-17] MEDS: MIRALAX *UNIT DOSE* 17GM PACKET PO SCH (08:20)
[2016-11-17] MEDS: amLODIPine 5 MG TAB PO SCH (08:20)
[2016-11-17] MEDS: OMEPRAZOLE 20 MG CAP PO SCH (08:20)
[2016-11-17] MEDS: HumaLOG INSULIN (NovoLOG) PER UNIT SC SCH (08:21)
[2016-11-17 09:10] VITALS: O2SAT 98
--- NOTE | 2016-11-19 11:35 | DSES ---
DATE OF ADMISSION: 11/15/2016 DATE OF DISCHARGE: 11/17/2016 ADMITTING PROVIDER: Uma Parada MD ADMITTING DIAGNOSIS: Osteonecrosis and osteoarthritis (OA) of the left hip. OTHER DIAGNOSES: Diabetes. Hypertension. Hyperlipidemia. Gastroesophageal reflux disease (GERD). DISCHARGE DIAGNOSIS: Status post left total hip arthroplasty. HISTORY OF PRESENT ILLNESS: Patient is a 50-year-old male with progressively worsening left hip pain and stiffness. He failed to improve with conservative measures so he elected for a left total hip arthroplasty with Dr. Parada. OPERATION PERFORMED: Left total hip arthroplasty. HOSPITAL COURSE: The patient underwent a left total hip arthroplasty under spinal anesthesia which was uneventful. He was up with physical therapy per their protocol, weightbearing as tolerated on the left lower extremity. Hospital team discharged the patient on oral pain medications and the patient was instructed to resume his preoperative diet. The patient will be weightbearing as tolerated on the left lower extremity. He will take his Coumadin and use his thromboembolic deterrent stockings (TEDS) for 30 days postoperatively to prevent deep vein thrombosis (DVT). He will followup in our office in 12-14 days or sooner if there is any increased pain, drainage, bleeding, redness, numbness and tingling into his leg, fever greater than 101 degrees or any other concerns. Please see medical record for additional details.
== END 2016-11-17 11:00 | disposition home health service (06) | DRG 301 ==
LOC: M OR 10:12 → M MS5PR 15:50
PROVIDERS: ADMIT Orthopaedic Surgery; ATTEND Orthopaedic Surgery
PROC: 0SRB04A Replacement of Left Hip Joint with Ceramic on Polyethylene Synthetic Substitute, Uncemented, Open Approach (ICD-10-PCS; principal; 2016-11-15 12:30)
DX: M16.12 Unilateral primary osteoarthritis, left hip (principal); Z79.899 Other long term (current) drug therapy; E11.9 Type 2 diabetes mellitus without complications; I10 Essential (primary) hypertension; Z87.891 Personal history of nicotine dependence; K21.9 Gastro-esophageal reflux disease without esophagitis; E78.5 Hyperlipidemia, unspecified; F90.9 Attention-deficit hyperactivity disorder, unspecified type; F10.10 Alcohol abuse, uncomplicated

== ENCOUNTER → 2016-12-01 | Outpatient (REF) | payer OTHER ==
[~2016-12-01] MED LIST changes: -ADDE30CA PO; +ADDE30CA3 PO; -ATOR40TA PO; +ATOR40TA75 PO; +COUM2.5T17 PO; +IBUP1TAB7 PO; -IBUP800T23 PO; -METF500T PO; +METF500T13 PO; -NORC7.5T PO; +NORC7.5T35 PO; +PERC5TAB12 PO; -ceFAZolin 1GM INJ (J0690) As Ordered ONE
[2016-12-01 13:21] LABS: INR 1.56
== END ==
LOC: M LABDRAW1 13:01
PROVIDERS: ATTEND Physician Assistant
DX: Z96.642 Presence of left artificial hip joint (principal)

== ENCOUNTER → 2016-12-06 | Outpatient (REF) | payer OTHER ==
[2016-12-06 12:42] LABS: INR 1.03
== END ==
LOC: M LABDRAW1 11:53
PROVIDERS: ATTEND Physician Assistant
DX: Z96.642 Presence of left artificial hip joint (principal)

== ENCOUNTER → 2016-12-09 | Outpatient (REF) | payer OTHER ==
[2016-12-09 13:34] LABS: INR 1.09
== END ==
LOC: M LABDRAW1 13:11
PROVIDERS: ATTEND Physician Assistant
DX: Z96.642 Presence of left artificial hip joint (principal); Z51.81 Encounter for therapeutic drug level monitoring; Z79.01 Long term (current) use of anticoagulants

== ENCOUNTER → 2016-12-13 | Outpatient (REF) | payer OTHER ==
[2016-12-13 13:44] LABS: INR 1.43
== END ==
LOC: M LABDRAW1 12:57
PROVIDERS: ATTEND Physician Assistant
DX: Z96.642 Presence of left artificial hip joint (principal); Z79.01 Long term (current) use of anticoagulants

== ENCOUNTER 2017-02-22 10:23 | Outpatient (CLI) | payer MEDICARE, OTHER ==
[~2017-02-22] VITALS: Ht 180.3 cm; Wt 95.3 kg
[2017-02-22] MEDS ORDERED: NS 1,000 ML IV ONE (10:45)
[2017-02-22] MEDS ORDERED: PROPOFOL 200 MG/20 ML VIAL As Ordered ONE (11:30)
[2017-02-22] MEDS ORDERED: PROPOFOL 500 MG/50 ML VIAL As Ordered ONE (12:02)
[2017-02-22] MEDS ORDERED: LIDOCAINE 2% INJ 100 MG/5 ML SDV (FOR ANES.) As Ordered ONE (12:02)
--- NOTE | 2017-02-22 12:31 | ROOR ---
Patient Name: Rosa Sanches Procedure Date: 02/22/2017 11:57 AM Date of : 1965 Age: 51 Room: [facility] Gender: Male Note Status: Finalized Procedure: Colonoscopy Indications: Surveillance: Personal history of piecemeal removal of large sessile adenoma on last colonoscopy (less than 6 months ago), Surveillance: Personal history of incomplete removal of large sessile adenoma on last colonoscopy (less than 6 months ago). ----Piecemeal resections of polyps: Proximal ascending colon: 3 cm adenoma-without HGD. Splenic flexure: 1 cm adenoma without HGD. (tattooed) Providers: Kj MONAE MD Referring MD: Julius Elliott NP Requesting Provider: Medicines: Monitored Anesthesia Care Complications: No immediate complications. Procedure: Pre-Anesthesia Assessment: - The heart rate, respiratory rate, oxygen saturations, blood pressure, adequacy of pulmonary ventilation, and response to care were monitored throughout the procedure. The Colonoscope was introduced through the anus and advanced to the cecum, identified by appendiceal orifice and ileocecal valve. The colonoscopy was performed without difficulty. The patient tolerated the procedure well. The quality of the bowel preparation was good. Findings: The perianal and digital rectal examinations were normal. A 3 mm polyp was found in the ascending colon. The polyp was sessile. The polyp was removed with a jumbo cold forceps. Resection and retrieval were complete. A 5 mm polyp was found in the splenic flexure. The polyp was sessile. The polyp was removed with a cold snare. Resection and retrieval were complete. A 3 mm polyp was found in the rectum. The polyp was sessile. The polyp was removed with a cold snare. Resection and retrieval were complete. A tattoo was seen at the splenic flexure. A post-polypectomy scar was found at the tattoo site. There was no evidence of residual polyp tissue. There is no endoscopic evidence of any other abnormality in the proximal Ascending Colon. Impression: - One 3 mm polyp in the ascending colon, removed with a jumbo cold forceps. Resected and retrieved. - One 5 mm polyp at the splenic flexure, removed with a cold snare. Resected and retrieved. - One 3 mm polyp in the rectum, removed with a cold snare. Resected and retrieved. - A tattoo was seen at the splenic flexure. A post-polypectomy scar was found at the tattoo site. There was no evidence of residual polyp tissue. Recommendation: - Repeat colonoscopy in 1 year to review the polypectomy site. Kj Monae MD Kj MONAE MD 02/22/2017 12:31:12 PM This report has been signed electronically. Number of Addenda: 0 Note Initiated On: 02/22/2017 11:57 AM Estimated Blood Loss: Estimated blood loss: none.
[2017-02-22 12:54] VITALS: BP 131/66
== END 2017-02-22 12:50 ==
LOC: M OPP 10:23
PROVIDERS: ATTEND Internal Medicine Gastroenterology
DX: Z09 Encounter for follow-up examination after completed treatment for conditions other than malignant neoplasm (principal); Z86.010 Personal history of colon polyps; Z80.0 Family history of malignant neoplasm of digestive organs; D12.2 Benign neoplasm of ascending colon; D12.3 Benign neoplasm of transverse colon; K62.1 Rectal polyp; I10 Essential (primary) hypertension; E78.5 Hyperlipidemia, unspecified; R60.0 Localized edema; E11.9 Type 2 diabetes mellitus without complications; R12 Heartburn; M19.90 Unspecified osteoarthritis, unspecified site; M54.5 Low back pain; R06.02 Shortness of breath; Z97.8 Presence of other specified devices; Z90.2 Acquired absence of lung [part of]; Z87.891 Personal history of nicotine dependence; Z79.01 Long term (current) use of anticoagulants; Z79.899 Other long term (current) drug therapy; Z79.84 Long term (current) use of oral hypoglycemic drugs; Z96.649 Presence of unspecified artificial hip joint

== ENCOUNTER → 2017-03-10 | Outpatient (REF) | payer MEDICARE, OTHER ==
[2017-03-10 14:20] LABS: ALBUMIN 4.2 GM/DL (3.2-5.2); ALBUMIN/GLOBULIN RATIO 1.17 (1.00-1.93); ALKALINE PHOSPHATASE 76 U/L (45-117); ALT/SGPT 22 U/L (12-78); ANION GAP 4 MEQ/L (8-16); AST/SGOT 20 U/L (15-37); BILIRUBIN,TOTAL 0.4 MG/DL (0.2-1.0); BLOOD UREA NITROGEN 17 MG/DL (7-18); CALCIUM LEVEL 8.9 MG/DL (8.5-10.1); CARBON DIOXIDE LEVEL 32 MEQ/L (21-32); CHLORIDE LEVEL 104 MEQ/L (98-107); CHOLESTEROL LEVEL 238 MG/DL (<200); CREATININE FOR GFR 0.78 MG/DL (0.70-1.30); GLOMERULAR FILTRATION RATE > 60.0 (>56); GLUCOSE, FASTING 123 MG/DL (70-105); POTASSIUM SERUM 4.3 MEQ/L (3.5-5.1); SODIUM LEVEL 140 MEQ/L (136-145); TOTAL PROTEIN 7.8 GM/DL (6.4-8.2); TRIGLYCERIDES LEVEL 222 MG/DL (<150)
== END ==
LOC: M LAB REF 12:23 → M LABDRWAD 12:28
PROVIDERS: ATTEND Nurse Practitioner Family
DX: E29.1 Testicular hypofunction (principal); E11.9 Type 2 diabetes mellitus without complications

== ENCOUNTER → 2017-06-20 | Outpatient (REF) | payer MEDICARE ==
[2017-06-20 13:14] LABS: BASO # 0.1 10^3/uL (0.0-0.2); BASO % 1.2 % (0.0-1.0); EOS # 0.2 10^3/uL (0.0-0.50); EOS % 2.8 % (0.0-3.0); HEMATOCRIT 45.8 % (42.0-52.0); HEMOGLOBIN 15.9 g/dl (14.0-18.0); IMMATURE GRANULOCYTE % 0.2 % (0-0); LYMPH # 2.2 10^3/uL (1.5-4.5); LYMPH % 35.9 % (24.0-44.0); MEAN CORPUSCULAR HEMOGLOBIN 31.2 pg (27.0-33.0); MEAN CORPUSCULAR HGB CONC 34.7 g/dl (32.0-36.5); MONO # 0.6 10^3/uL (0.0-0.8); MONO % 10.4 % (0.0-5.0); NEUTROPHILS % 49.5 % (36.0-66.0); PLATELET COUNT, AUTOMATED 283 10^3/uL (150-450); RED BLOOD COUNT 5.09 10^6/uL (4.30-6.10); RED CELL DISTRIBUTION WIDTH 12.5 % (11.5-14.5)
[2017-06-20 13:34] LABS: ESTIMATED AVERAGE GLUCOSE 117 MG/DL (60-110); HEMOGLOBIN A1c 5.7 %
[2017-06-20 13:35] LABS: ALBUMIN/GLOBULIN RATIO 1.61 (1.00-1.93); ALKALINE PHOSPHATASE 78 U/L (45-117); ALT/SGPT 40 U/L (12-78); ANION GAP 9 MEQ/L (8-16); AST/SGOT 35 U/L (7-37); BILIRUBIN,TOTAL 0.6 MG/DL (0.2-1.0); BLOOD UREA NITROGEN 13 MG/DL (7-18); CALCIUM LEVEL 9.3 MG/DL (8.5-10.1); CARBON DIOXIDE LEVEL 31 MEQ/L (21-32); CHLORIDE LEVEL 100 MEQ/L (98-107); CHOLESTEROL LEVEL 240 MG/DL (<200); CHOLESTEROL RISK RATIO 4.067 (<5); CREATININE FOR GFR 0.87 MG/DL (0.70-1.30); GLOMERULAR FILTRATION RATE > 60.0 (>56); GLUCOSE, FASTING 139 MG/DL (70-100); HDL CHOLESTEROL 59 MG/DL (>40); LDL CHOLESTEROL 126.2 MG/DL (<100); NON-HDL-C 181 MG/DL; POTASSIUM SERUM 4.1 MEQ/L (3.5-5.1); SODIUM LEVEL 140 MEQ/L (136-145); TOTAL PROTEIN 8.1 GM/DL (6.4-8.2); TRIGLYCERIDES LEVEL 274 MG/DL (<150)
[2017-06-22 00:06] LABS: TESTOSTERONE FREE (DIRECT) 9.1 pg/mL (7.2-24.0)
[2017-06-22 14:14] LABS: PSA TOTAL 2.7 ng/mL (0.0-4.0)
== END ==
LOC: M LABDRWAD 12:27
DX: I10 Essential (primary) hypertension (principal); E29.1 Testicular hypofunction; E11.9 Type 2 diabetes mellitus without complications; E78.4 Other hyperlipidemia
CPT/HCPCS: 84403

== ENCOUNTER → 2018-02-15 | Outpatient (REF) | payer MEDICARE ==
[2018-02-15 12:40] LABS: BASO % 0.9 % (0.0-1.0); EOS # 0.2 10^3/uL (0.0-0.50); EOS % 3.3 % (0.0-3.0); HEMATOCRIT 38.9 % (42.0-52.0); HEMOGLOBIN 13.8 g/dl (13.5-17.5); IMMATURE GRANULOCYTE % 0.2 % (0-3.0); LYMPH # 1.6 10^3/uL (1.5-4.5); LYMPH % 35.1 % (24.0-44.0); MEAN CORPUSCULAR HEMOGLOBIN 33.3 pg (27.0-33.0); MEAN CORPUSCULAR HGB CONC 35.5 g/dl (32.0-36.5); MEAN CORPUSCULAR VOLUME 93.7 fl (80.0-96.0); MONO # 0.6 10^3/uL (0.0-0.8); MONO % 12.3 % (0.0-5.0); NEUTROPHILS # 2.2 10^3/uL (1.8-7.7); NEUTROPHILS % 48.2 % (36.0-66.0); PLATELET COUNT, AUTOMATED 244 10^3/uL (150-450); RED BLOOD COUNT 4.15 10^6/uL (4.30-6.10); RED CELL DISTRIBUTION WIDTH 12.3 % (11.5-14.5); WHITE BLOOD COUNT 4.6 10^3/uL (4.0-10.0)
[2018-02-15 14:43] LABS: ALBUMIN 4.2 GM/DL (3.2-5.2); ALBUMIN/GLOBULIN RATIO 1.31 (1.00-1.93); ALKALINE PHOSPHATASE 105 U/L (45-117); ALT/SGPT 64 U/L (12-78); ANION GAP 12 MEQ/L (8-16); AST/SGOT 42 U/L (7-37); BILIRUBIN,TOTAL 0.5 MG/DL (0.2-1.0); BLOOD UREA NITROGEN 12 MG/DL (7-18); CALCIUM LEVEL 9.4 MG/DL (8.5-10.1); CARBON DIOXIDE LEVEL 27 MEQ/L (21-32); CHLORIDE LEVEL 103 MEQ/L (98-107); CHOLESTEROL LEVEL 219 MG/DL (<200); CREATININE FOR GFR 0.83 MG/DL (0.70-1.30); GLOMERULAR FILTRATION RATE > 60.0 (>56); GLUCOSE, FASTING 143 MG/DL (70-100); HDL CHOLESTEROL 50 MG/DL (>40); LDL CHOLESTEROL 110 MG/DL (<100); NON-HDL-C 169 MG/DL; POTASSIUM SERUM 4.3 MEQ/L (3.5-5.1); SODIUM LEVEL 142 MEQ/L (136-145); TOTAL PROTEIN 7.4 GM/DL (6.4-8.2); TRIGLYCERIDES LEVEL 293 MG/DL (<150)
== END ==
LOC: M LAB REF 12:18
DX: E78.4 Other hyperlipidemia (principal); I10 Essential (primary) hypertension; E29.1 Testicular hypofunction
CPT/HCPCS: 84403

== ENCOUNTER 2018-07-11 14:48 | Emergency (ER) | payer MEDICARE, OTHER ==
[~2018-07-11] VITALS: Ht 180.3 cm; Wt 102.3 kg
[~2018-07-11 14:48] MED LIST changes: -AMLO5TAB2 PO; +AMLO5TAB6 PO; +ANDR2DIS TOP; +ASPI1TAB PO; -GEMF600T PO; +GEMF600T5 PO; -LOSA100T36 PO; +LOSA100T50 PO
[2018-07-11] MEDS ORDERED: amLODIPine 5 MG TAB PO ONE (16:15)
[2018-07-11] MEDS ORDERED: hydrALAZINE INJ 20 MG/ML VIAL IV ONE (16:15)
[2018-07-11 16:35] LABS: HEMATOCRIT 37.2 % (42.0-52.0); HEMOGLOBIN 13.1 g/dl (13.5-17.5); MEAN CORPUSCULAR HGB CONC 35.2 g/dl (32.0-36.5); MEAN CORPUSCULAR VOLUME 93.7 fl (80.0-96.0); PLATELET COUNT, AUTOMATED 239 10^3/uL (150-450); RED BLOOD COUNT 3.97 10^6/uL (4.30-6.10); WHITE BLOOD COUNT 6.3 10^3/uL (4.0-10.0)
[2018-07-11 17:10] LABS: BLOOD UREA NITROGEN 18 MG/DL (7-18); CALCIUM LEVEL 8.8 MG/DL (8.5-10.1); CARBON DIOXIDE LEVEL 28 MEQ/L (21-32); CHLORIDE LEVEL 105 MEQ/L (98-107); GLOMERULAR FILTRATION RATE > 60.0 (>56); GLUCOSE, FASTING 106 MG/DL (70-100); POTASSIUM SERUM 4.2 MEQ/L (3.5-5.1); SODIUM LEVEL 140 MEQ/L (136-145)
[2018-07-11 17:45] VITALS: BP 229/102
--- NOTE | 2018-07-12 06:35 | ECGEPIP ---
Stationary ECG Study [facility] - ED Test Date: 2018-07-11 Pat Name: RICHARD COLES Department: Room: - Gender: M Certified Adapted Physical Educator: LESLEY : 1965 Requested By: Mike Pizarro Order Number: [id number] Reading MD: Mike Francis Measurements Intervals [place] Rate: 57 P: -67 AR: 362 QRS: 22 QRSD: 88 T: 58 QT: 448 QTc: 437 Interpretive Statements SINUS BRADYCARDIA WITH OCCASIONAL VENTRICULAR PREMATURE COMPLEX SIMILAR TO 11/02/16 Electronically Signed On 07-12-2018 6:35:04 EST by Mike Francis
== END 2018-07-11 17:59 | disposition home or self-care (01) ==
LOC: M ED 14:48
DX: I10 Essential (primary) hypertension (principal); R00.1 Bradycardia, unspecified; E11.9 Type 2 diabetes mellitus without complications; D36.10 Benign neoplasm of peripheral nerves and autonomic nervous system, unspecified; E78.5 Hyperlipidemia, unspecified; F98.8 Other specified behavioral and emotional disorders with onset usually occurring in childhood and adolescence; M19.90 Unspecified osteoarthritis, unspecified site; Z79.899 Other long term (current) drug therapy; Z79.84 Long term (current) use of oral hypoglycemic drugs; Z79.82 Long term (current) use of aspirin

== ENCOUNTER 2018-08-11 07:23 | Day surgery (SDC) | payer OTHER ==
[~2018-08-11] VITALS: Ht 177.8 cm; Wt 102.5 kg
[~2018-08-11 07:23] MED LIST changes: -/AMIO20TA OR; +AMIO1TAB OR; +ASPI-1 PO; -ASPI1TAB PO; -ASPI325T PO; +ASPI81TA26 PO; +NORC1TAB8 PO; -NORC7.5T35 PO
[2018-08-11] MEDS ORDERED: NS 1,000 ML IV ONE (08:00)
[2018-08-11] MEDS ORDERED: LIDOCAINE 2% INJ 100 MG/5 ML SDV (FOR ANES.) As Ordered ONE (08:24)
[2018-08-11] MEDS ORDERED: PROPOFOL 500 MG/50 ML VIAL As Ordered ONE ×2 (08:24→08:56)
--- NOTE | 2018-08-11 09:00 | ROOR ---
Patient Name: Rosa Sanches Procedure Date: 08/11/2018 8:21 AM Date of : 1965 Age: 52 Room: [facility] Gender: Male Note Status: Finalized Procedure: Colonoscopy Indications: High risk colon cancer surveillance: Personal history of colonic polyps, Surveillance: Piecemeal removal of large sessile adenoma last colonoscopy (< 3 yrs), Last colonoscopy: February 2017 Providers: Kj MONAE MD Referring MD: Julius Elliott NP Requesting Provider: Medicines: Monitored Anesthesia Care Complications: No immediate complications. Procedure: Pre-Anesthesia Assessment: - The heart rate, respiratory rate, oxygen saturations, blood pressure, adequacy of pulmonary ventilation, and response to care were monitored throughout the procedure. The Colonoscope was introduced through the anus and advanced to the cecum, identified by appendiceal orifice and ileocecal valve. The colonoscopy was performed without difficulty. The patient tolerated the procedure well. The quality of the bowel preparation was fair and 20 percent obscured. Findings: The perianal and digital rectal examinations were normal. (EXAM: Complete, PREP: Suboptimal) Five sessile polyps were found in the sigmoid colon, splenic flexure, transverse colon and ascending colon. The polyps were 4 to 5 mm in size. These polyps were removed with a cold snare. Resection and retrieval were complete. Mild sigmoid diverticulosis and small internal hemorrhoids. A tattoo was seen at the splenic flexure. A post-polypectomy scar was found at the tattoo site. There was no evidence of residual polyp tissue. Impression: - (EXAM: Complete, PREP: Suboptimal) - Five 4 to 5 mm polyps in the sigmoid colon, at the splenic flexure, in the transverse colon and in the ascending colon, removed with a cold snare. Resected and retrieved. - Mild sigmoid diverticulosis and small internal hemorrhoids. Recommendation: - Repeat colonoscopy in 2 years for surveillance. - (you will need additional prep for next colonoscopy) Kj Monae MD Kj MONAE MD 08/11/2018 8:59:30 AM This report has been signed electronically. Number of Addenda: 0 Note Initiated On: 08/11/2018 8:21 AM Estimated Blood Loss: Estimated blood loss: none.
[2018-08-11 09:24] VITALS: BP 140/68
== END 2018-08-11 09:26 | disposition home or self-care (01) ==
LOC: M OPP 07:23
PROVIDERS: ATTEND Internal Medicine Gastroenterology
DX: Z86.010 Personal history of colon polyps (principal); Z80.0 Family history of malignant neoplasm of digestive organs; D12.5 Benign neoplasm of sigmoid colon; D12.3 Benign neoplasm of transverse colon; D12.2 Benign neoplasm of ascending colon; K57.30 Diverticulosis of large intestine without perforation or abscess without bleeding; K64.8 Other hemorrhoids; Z09 Encounter for follow-up examination after completed treatment for conditions other than malignant neoplasm; Z79.82 Long term (current) use of aspirin; Z79.84 Long term (current) use of oral hypoglycemic drugs; Z79.899 Other long term (current) drug therapy

== ENCOUNTER → 2019-03-02 | Outpatient (REF) | payer MEDICARE, OTHER ==
[~2019-03-02] MED LIST changes: -GLIM2TAB PO; +GLIM2TAB4 PO; +OMEP1CAP73 PO; -OMEP20CA3 PO
== END ==
LOC: M SFHCPLAZ 13:52
PROVIDERS: ATTEND Nurse Practitioner Family
DX: E11.9 Type 2 diabetes mellitus without complications (principal); E78.5 Hyperlipidemia, unspecified; I10 Essential (primary) hypertension; Z53.8 Procedure and treatment not carried out for other reasons

== ENCOUNTER → 2019-10-03 | Outpatient (REF) | payer OTHER ==
[~2019-10-03] MED LIST changes: +CYCL-707 PO; -CYCL10TA PO
[2019-10-03 13:55] LABS: BASO # 0.1 10^3/uL (0.0-0.2); BASO % 0.8 % (0.0-1.0); EOS # 0.2 10^3/uL (0.0-0.5); EOS % 3.4 % (0.0-3.0); HEMATOCRIT 40.8 % (42.0-52.0); HEMOGLOBIN 14.5 g/dl (13.5-17.5); LYMPH # 2.3 10^3/uL (1.5-5.0); LYMPH % 35.7 % (24.0-44.0); MEAN CORPUSCULAR HEMOGLOBIN 33.5 pg (27.0-33.0); MEAN CORPUSCULAR HGB CONC 35.5 g/dl (32.0-36.5); MEAN CORPUSCULAR VOLUME 94.2 fl (80.0-96.0); MONO # 0.5 10^3/uL (0.0-0.8); MONO % 7.6 % (0.0-5.0); NEUTROPHILS # 3.4 10^3/uL (1.5-8.5); NEUTROPHILS % 52.3 % (36.0-66.0); PLATELET COUNT, AUTOMATED 266 10^3/uL (150-450); RED BLOOD COUNT 4.33 10^6/uL (4.30-6.10); WHITE BLOOD COUNT 6.4 10^3/uL (4.0-10.0)
[2019-10-03 14:06] LABS: ALBUMIN 4.1 GM/DL (3.2-5.2); ALT/SGPT 95 U/L (12-78); BILIRUBIN,TOTAL 0.7 MG/DL (0.2-1.0); BLOOD UREA NITROGEN 15 MG/DL (7-18); CALCIUM LEVEL 9.9 MG/DL (8.5-10.1); CARBON DIOXIDE LEVEL 29 MEQ/L (21-32); CHLORIDE LEVEL 101 MEQ/L (98-107); CHOLESTEROL LEVEL 242 MG/DL (<200); CHOLESTEROL RISK RATIO 3.558 (<5); CREATININE FOR GFR 0.93 MG/DL (0.70-1.30); GLOMERULAR FILTRATION RATE > 60.0 (>56); GLUCOSE, FASTING 175 MG/DL (70-100); HDL CHOLESTEROL 68 MG/DL (>40); LDL CHOLESTEROL 130 MG/DL (<100); NON-HDL-C 174 MG/DL; POTASSIUM SERUM 4.7 MEQ/L (3.5-5.1); SODIUM LEVEL 137 MEQ/L (136-145); TOTAL PROTEIN 7.6 GM/DL (6.4-8.2); TRIGLYCERIDES LEVEL 221 MG/DL (<150)
[2019-10-03 14:39] LABS: HEMOGLOBIN A1c 7.4 %
[2019-10-03 14:54] LABS: MAU/CREAT RATIO 383.7 MCG/MG (0.0-30.0)
== END ==
LOC: M SFHCADAM 08:52
PROVIDERS: ATTEND Physician Assistant Medical
DX: E78.2 Mixed hyperlipidemia (principal); E11.9 Type 2 diabetes mellitus without complications; I10 Essential (primary) hypertension; K21.9 Gastro-esophageal reflux disease without esophagitis

== ENCOUNTER → 2019-10-04 | Outpatient (REF) | payer OTHER ==
[2019-10-04 13:28] LABS: ALBUMIN 3.9 GM/DL (3.2-5.2); ALT/SGPT 68 U/L (12-78); BILIRUBIN,DIRECT 0.3 MG/DL (0.0-0.2); BILIRUBIN,TOTAL 0.6 MG/DL (0.2-1.0); TOTAL PROTEIN 7.3 GM/DL (6.4-8.2)
[2019-10-05 11:01] LABS: HEPATITIS B SURFACE ANTIGEN NEGATIVE (NEGATIVE)
[2019-10-05 11:29] LABS: HEPATITIS B CORE ANTIBODY IGM NEGATIVE (NEGATIVE)
[2019-10-05 11:31] LABS: HEPATITIS A ANTIBODY IGM NEGATIVE (NEGATIVE)
== END ==
LOC: M SFHCADAM 09:03
PROVIDERS: ATTEND Physician Assistant Medical
DX: R79.89 Other specified abnormal findings of blood chemistry (principal); Z23 Encounter for immunization
CPT/HCPCS: 80076; 86705; 86709; 86803; 87340; 90732; G0009; G0463

== ENCOUNTER → 2019-10-18 | Outpatient (CLI) | payer OTHER ==
--- NOTE | 2019-10-18 20:55 | REP ---
Clinical: Elevated liver function tests. Technique: Real time monreal scale ultrasound examination using curved array transducer. Findings: Liver is normal in contour and echogenicity measuring 17.3 cm craniocaudal length, and without focal hepatic lesion identified. Pancreas is incompletely evaluated due to interposed bowel gas but visualized portions appear normal. The gallbladder is distended and measures 11.0 cm in length and 4.4 cm maximal diameter demonstrating echogenic nonshadowing material suggesting tumefactive sludge. The common bile duct is dilated to 13 mm and the intrahepatic biliary dilatation is noted as well. No gallbladder wall thickening or pericholecystic fluid is appreciated. The right kidney is normal in reniform shape and measures 12 28 x 4.2 x 4.9 cm without hydronephrosis. No ascites. Impression: 1. Intrahepatic and extrahepatic biliary ductal dilatation and the common bile duct measuring up to 13 mm diameter. The gallbladder appears distended with findings to suggest tumefactive sludge and less likely representing mass lesion. Correlation with physical examination is recommended. CT may be considered for further investigation of the right upper quadrant and to exclude the possibility of extrinsic obstructing lesion.
== END ==
LOC: M WHC 07:54
PROVIDERS: ATTEND Physician Assistant Medical
DX: R79.89 Other specified abnormal findings of blood chemistry (principal)

== ENCOUNTER → 2019-11-20 | Outpatient (CLI) | payer OTHER ==
[~2019-11-20] MED LIST changes: +ADDE30TA PO; +ALEV220T22 PO; +AMLO10TA5 PO; +ATOR80TA59 PO; +GLIM4TAB5 PO; +HYDR12CA PO; +METF-877 PO
[2019-11-20 15:09] LABS: ALBUMIN 3.5 GM/DL (3.2-5.2); BILIRUBIN,DIRECT 0.5 MG/DL (0.0-0.2); BILIRUBIN,TOTAL 0.8 MG/DL (0.2-1.0); TOTAL PROTEIN 7.7 GM/DL (6.4-8.2)
== END ==
LOC: M LAB 14:15
PROVIDERS: ATTEND Surgery
DX: R79.89 Other specified abnormal findings of blood chemistry (principal)

== ENCOUNTER → 2019-11-20 | Outpatient (CLI) | payer OTHER ==
[~2019-11-20] MED LIST changes: +GASTROGRAFIN SOLUTION 30ML (Q9963) As Ordered ONE; +ISOVUE-370 76% 100ML VIAL As Ordered ONE
--- NOTE | 2019-11-20 17:08 | REP ---
Clinical: Right upper quadrant pain and elevated liver function tests with abnormal findings on recent abdominal ultrasound. Technique: Axial contrast enhanced images from the lung bases to the pubic symphysis using oral (per protocol) and 100 ml Isovue 370 intravenous contrast material with coronal and sagittal re-formations. Delayed images of the abdomen obtained. Findings: Intrahepatic and extrahepatic biliary ductal dilatation is again appreciated with the common bile duct at the head of the pancreas measuring 16 mm diameter. An obstructing lesion and the common bile duct at the region of the ampulla cannot be excluded. Gallbladder demonstrates small gallstone without pericholecystic fluid or gallbladder wall thickening. The pancreas is unremarkable and without obvious pancreatic ductal dilatation. A few mildly prominent lymph nodes in the region of the harrison hepatis are suggested including possible lymph node measuring up to 2 cm. Fatty infiltration to the liver noted without focal hepatic lesion. Spleen, bilateral adrenal glands and kidneys are normal. The enteric system is without obstruction or acute inflammatory process. Scattered colonic diverticula noted without acute diverticulitis. Pelvis demonstrates normal bladder and prostate/seminal vesicles. No ascites. No free air. No adenopathy. Atherosclerotic changes to the aorta without aneurysm or dissection. Musculoskeletal structures demonstrate degenerative changes and left hip replacement. Impression: 1. Intrahepatic and extrahepatic biliary ductal dilatation with the common bile duct measuring up to 16 mm diameter. Obstructing lesion at the level of the ampulla cannot be excluded. Correlation with ERCP may be of value. 2. Few mildly prominent lymph nodes in the region of the harrison hepatis are identified raising suspicion for underlying pathology including neoplasm. Electronically Signed by Rico Stewart MD 11/20/2019 05:00 P
== END ==
LOC: M RAD 14:12
PROVIDERS: ATTEND Physician Assistant Medical
DX: R94.5 Abnormal results of liver function studies (principal); K82.8 Other specified diseases of gallbladder
CPT/HCPCS: 74177; Q9963; Q9967

== ENCOUNTER 2019-12-04 11:31 | Inpatient (IN) | payer OTHER ==
[~2019-12-04] VITALS: Ht 180.3 cm; Wt 99.6 kg
[~2019-12-04 11:31] MED LIST changes: -ADDE30TA PO; -ALEV220T22 PO; -AMLO10TA5 PO; -ATOR80TA59 PO; -GASTROGRAFIN SOLUTION 30ML (Q9963) As Ordered ONE; -GLIM4TAB5 PO; -HYDR12CA PO; -ISOVUE-370 76% 100ML VIAL As Ordered ONE; -METF-877 PO
[2019-12-04 12:26] LABS: BASO % 0.5 % (0.0-1.0); EOS # 0.1 10^3/uL (0.0-0.5); EOS % 1.5 % (0.0-3.0); HEMATOCRIT 33.2 % (42.0-52.0); HEMOGLOBIN 11.4 g/dl (13.5-17.5); LYMPH # 0.9 10^3/uL (1.5-5.0); LYMPH % 11.5 % (24.0-44.0); MEAN CORPUSCULAR HEMOGLOBIN 31.9 pg (27.0-33.0); MEAN CORPUSCULAR HGB CONC 34.3 g/dl (32.0-36.5); MONO # 0.6 10^3/uL (0.0-0.8); MONO % 7.8 % (0.0-5.0); NEUTROPHILS # 6.3 10^3/uL (1.5-8.5); NEUTROPHILS % 78.3 % (36.0-66.0); PLATELET COUNT, AUTOMATED 246 10^3/uL (150-450); RED BLOOD COUNT 3.57 10^6/uL (4.30-6.10); WHITE BLOOD COUNT 8.1 10^3/uL (4.0-10.0)
[2019-12-04 12:53] LABS: ALBUMIN 3.4 GM/DL (3.2-5.2); BILIRUBIN,DIRECT 0.7 MG/DL (0.0-0.2); BILIRUBIN,TOTAL 1.2 MG/DL (0.2-1.0); TOTAL PROTEIN 7.4 GM/DL (6.4-8.2)
[2019-12-04] MEDS ORDERED: NS 1,000 ML IV SCH (13:45)
[2019-12-04] MEDS ORDERED: PIPERACILLIN/TAZOBACTAM SOD 3.375 GM in D5W MINI-BAG PLUS 50 ML IV ONE (13:45)
[2019-12-04] MEDS ORDERED: ACETAMINOPHEN TAB 650MG DOSE (2X325MG) PO PRN (14:15)
[2019-12-04] MEDS ORDERED: ATOR80TA59 PO (14:20)
[2019-12-04] MEDS ORDERED: ADDE30TA PO (14:20)
[2019-12-04] MEDS ORDERED: HYDR12CA PO (14:20)
[2019-12-04] MEDS ORDERED: GLIM4TAB5 PO (14:20)
[2019-12-04] MEDS ORDERED: AMLO10TA5 PO (14:20)
[2019-12-04] MEDS ORDERED: ALEV220T22 PO (14:20)
[2019-12-04] MEDS ORDERED: METF-877 PO (14:20)
[2019-12-04] MEDS ORDERED: GLUCAGON INJ 1MG VIAL SC PRN (14:30)
[2019-12-04] MEDS ORDERED: GLUCOSE 4GM CHEW TABLET PO PRN (14:30)
[2019-12-04] MEDS ORDERED: DEXTROSE 50% 50 ML SYRINGE IV PRN (14:30)
[2019-12-04] MEDS: NS 1,000 ML IV SCH ×2 (14:36→22:21)
--- NOTE | 2019-12-04 14:39 | HPEPDOC ---
General Date of Admission 12/04/19 Date of Service: Dec 04, 2019 Chief Complaint The patient is a 54-year-old male admitted with a reason for visit of Abdominal Pain. Source: Patient Exam Limitations: No limitations Timing/Duration: Week(s) Severity: Moderate History of Present Illness Patient is 54 years old male with past medical history of hypertension, hyperlipidemia, acid reflux, diabetes mellitus type2 presented to the hospital with right upper quadrant pain. Patient stated that for past few months he had been having intermittent right upper quadrant pain after fatty meal. Patient's saw doctor Letha around 3 weeks ago due to elevated LFT and have appointment for tomorrow. However today patient has increased right upper quadrant pain associated with nausea, he called to the GI office and he was recommended to come to emergency room. In ER patient was found to have transaminitis with total bilirubin 1.2, alkaline phosphatase 550. Dr. Monae was contacted by phone, he recommended to admit the patient for MRCP and to start Zosyn IV. Of note, CT scan from October 2019 showed Intrahepatic and extrahepatic biliary ductal dilatation with the common bile duct measuring up to 16 mm diameter. Obst ructing lesion at the level of the ampulla cannot be excluded. Correlation with ERCP may be of value. Few mildly prominent lymph nodes in the region of the harrison hepatis are identified raising suspicion for underlying pathology including neoplasm. Patient denied fever, chills, vomiting, chest pain, palpitations diarrhea or dysuria Home Medications Scheduled Amlodipine Besylate (Amlodipine Besylate) 10 Mg Tablet, 10 MG PO DAILY, (Reported) Atenolol (Atenolol) 50 Mg Tab, 50 MG PO DAILY, (Reported) Atorvastatin Calcium (Atorvastatin Calcium) 80 Mg Tablet, 80 MG PO DAILY, (Repo rted) Dextroamphetamine/Amphetamine (Adderall 30 mg Tablet) 30 Mg Tablet, 30 MG PO BID, (Reported) TAKES AM/AFTERNOON Gemfibrozil (Gemfibrozil) 600 Mg Tab, 600 MG PO DAILY, (Reported) Glimepiride (Glimepiride) 4 Mg Tablet, 4 MG PO DAILY, (Reported) Hydrochlorothiazide (Hydrochlorothiazide) 12.5 Mg Capsule, 12.5 MG PO DAILY, (Reported) Losartan Potassium (Losartan Potassium) 100 Mg Tab, 100 MG PO DAILY, (Reported) Metformin HCl (Metformin HCl) 1,000 Mg Tablet, 1,000 MG PO BIDWM, (Reported) Omeprazole (Omeprazole) 20 Mg Cap, 20 MG PO DAILY, (Reported) Scheduled PRN Naproxen Sodium (Aleve) 220 Mg Tablet, 440 MG PO BID PRN for PAIN, (Reported) Allergies Coded Allergies: No Known Allergies (Unverified , 12/04/19) Past Medical History Medical History DM2 HTN 11/06 EKG NSR HYPERLIPIDEMIA GERD ADD ARTHRITIS COLONSCOPY 11/2018: DR. MONAE, TUBULAR ADENOMA POLYPS, REPEAT IN Surgical History LEFT KNEE SCOPE LEFT HIP REPLACEMENT LEFT LOWER LUNG LOBECTOMY: GANGLIONEUROMA OF THE CHEST WALL - MELANIE 2010 RIGHT SHOULDER ROTATOR CUFF Family History FATHER: 80 YRS, [place], CAD MOTHER: 76 YRS, COLON CANCER, DX 70. RECTAL CANCER, CVA, LUNG CANCER Social History * Smoker: former Smoker Alcohol: other (daily 1 to 2 shots of hard liquor) Drugs: denies A-FIB/CHADSVASC A-FIB History Current/History of A-Fib/PAF?: No Current PO Anticoag Therapy: No Review of Systems Constitutional: Denies: Chills, Fever Eyes: Denies: Pain, Vision change Skin: Denies: Rash, Lesions Pulmonary: Denies: Dyspnea Cardiovascular: Denies: Chest Pain Gastrointestinal: Reports: Nausea, Abdominal Pain; Denies: Vomiting Genitourinary: Denies: Dysuria Hematologic: Denies: Bruising Endocrine: Denies: Polydipsia Musculoskeletal: Denies: Neck Pain Neurological: Denies: Weakness Psych: Reports: Mood Normal Physical Examination General Exam: Positive: Alert, Cooperative Eye Exam: Positive: PERRLA ENT Exam: Positive: Atraumatic Neck Exam: Positive: Supple; Negative: JVD Chest Exam: Positive: Clear to auscultation Heart Exam: Positive: Rate Normal Telemetry: Positive: No significant arrhythmia Abdomen Exam: Positive: Normal bowel sounds; Negative: Hepatospenomegaly, Mass Extremity Exam: Negative: Clubbing, Cyanosis Skin Exam: Positive: Nl turgor and temperature Neuro Exam: Positive: Normal Gait, Strength at 5/5 X4 ext, Cranial Nerves 3-12 NL Psych Exam: Positive: Mental status NL Vital Signs Vital Signs Date Time Temp Pulse Resp B/P (MAP) Pulse Ox O2 Delivery O2 Flow Rate FiO2 12/04/19 12:26 12/04/19 11:32 97.7 74 22 99 Room Air Laboratory Data Labs 24H Laboratory Tests 2 12/04/19 12:11: Immature Granulocyte % (Auto) 0.4, Neutrophils (%) (Auto) 78.3H, Lymphocytes (%) (Auto) 11.5L, Monocytes (%) (Auto) 7.8H, Eosinophils (%) (Auto) 1.5, Basophils (%) (Auto) 0.5, Neutrophils # (Auto) 6.3, Lymphocytes # (Auto) 0.9L, Monocytes # (Auto) 0.6, Eosinophils # (Auto) 0.1, Basophils # (Auto) 0.0, Nucleated Red Blood Cells % (auto) 0.0, Total Bilirubin 1.2H, Direct Bilirubin 0.7H, Aspartate Amino Transf (AST/SGOT) 72H, Alanine Aminotransferase (ALT/SGPT) 95H, Alkaline Phosphatase 556H, Total Protein 7.4, Albumin 3.4, Albumin/Globulin Ratio 0.9, Lipase 306 12/04/19 12:17: POC Glucose (Misc Panel) 228H, POC Sodium (Misc Panel) 137, POC Potassium (Misc Panel) 4.2, POC Chloride (Misc Panel) 102, POC Total CO2 (Misc Panel) 24.0, POC Blood Urea Nitrogen (Misc Panel 23, POC Ionized Calcium (Misc Panel) 4.9, POC Creatinine (Misc Panel) 0.9, POC Hematocrit (Misc Panel) 33.0L CBC/BMP Laboratory Tests 12/04/19 12:11 Assessment/Plan Patient is 54 years old male with past medical history of hypertension, hyperlipidemia, acid reflux, diabetes mellitus type2 presented to the hospital with right upper quadrant pain. Patient stated that for past few months he had been having intermittent right upper quadrant pain after fatty meal. Patient's saw doctor Letha around 3 weeks ago due to elevated LFT and have appointment for tomorrow. However today patient has increased right upper quadrant pain associated with nausea, he called to the GI office and he was recommended to come to emergency room. In ER patient was found to have transaminitis with total bilirubin 1.2, alkaline phosphatase 550. Dr. Monae was contacted by phone, he recommended to admit the patient for MRCP and to start Zosyn IV. Patient denied fever, chills, vomiting, chest pain, palpitations diarrhea or dysuria Problems (1) Abdominal pain Status: Acute Problem Text: Most likely secondary to choledocholithiasis or malignancy CT scan from October 2019 showed Intrahepatic and extrahepatic biliary ductal dilatation with the common bile duct measuring up to 16 mm diameter. Obstructing lesion at the level of the ampulla cannot be excluded. Correlation with ERCP may be of value. Few mildly prominent lymph nodes in the region of the harrison hepatis are identified raising suspicion for underlying pathology including neoplasm. Dr Monae was contacted by phone he recommended MRCP and Zosyn IV. Patient doesn't have fever, no leukocytosis, total bilirubin mildly elevated to 1.2, direct 0.7. Patient was tested for hepatitis recently and result was negative Nothing by mouth for now (2) Hypertension Problem Text: Continue home cardioprotective medications Blood pressures under control (3) Diabetes mellitus Status: Chronic Problem Text: Diabetes diet Insulin sliding scale (4) Transaminitis Status: Chronic Problem Text: Unknown etiology for now, could be secondary to choledocholithiasis, malignancy or medication side effect I will hold statin. Also we'll hold gemfibrozil which can be cause of abdominal pain and cholelithiasis Patient was tested for hepatitis recently and result was negative Continue to monitor Plan / VTE VTE Prophylaxis Ordered?: Yes NORMAN DEE DO Dec 04, 2019 14:39
[2019-12-04 15:50] VITALS: BP 145/83
[2019-12-04] MEDS: HumaLOG INSULIN (NovoLOG) PER UNIT SC SCH ×2 (17:02→21:08)
[2019-12-04] MEDS: HEPARIN SOD (PORCINE) 5000UNITS/ML VIAL (J1644 PER 1000UNITS) SC SCH (21:08)
[2019-12-04 22:00] VITALS: BP 128/75
[2019-12-04] MEDS: PIPERACILLIN/TAZOBACTAM SOD 3.375 GM in D5W MINI-BAG PLUS 50 ML IV SCH (22:21)
[2019-12-05] VITALS (7 sets, daily range): BP systolic 104–148; BP diastolic 74–86
[2019-12-05 06:14] LABS: HEMATOCRIT 32.7 % (42.0-52.0); HEMOGLOBIN 11.3 g/dl (13.5-17.5); MEAN CORPUSCULAR HEMOGLOBIN 32.5 pg (27.0-33.0); MEAN CORPUSCULAR HGB CONC 34.6 g/dl (32.0-36.5); PLATELET COUNT, AUTOMATED 216 10^3/uL (150-450); RED BLOOD COUNT 3.48 10^6/uL (4.30-6.10); WHITE BLOOD COUNT 5.7 10^3/uL (4.0-10.0)
[2019-12-05] MEDS: PIPERACILLIN/TAZOBACTAM SOD 3.375 GM in D5W MINI-BAG PLUS 50 ML IV SCH ×3 (06:22→23:19)
[2019-12-05] MEDS: NS 1,000 ML IV SCH ×2 (06:22→15:02)
[2019-12-05 06:39] LABS: ALBUMIN 2.9 GM/DL (3.2-5.2); ALT/SGPT 87 U/L (12-78); BILIRUBIN,TOTAL 1.3 MG/DL (0.2-1.0); BLOOD UREA NITROGEN 17 MG/DL (7-18); CALCIUM LEVEL 9.2 MG/DL (8.5-10.1); CARBON DIOXIDE LEVEL 27 MEQ/L (21-32); CHLORIDE LEVEL 105 MEQ/L (98-107); CREATININE FOR GFR 1.06 MG/DL (0.70-1.30); GLOMERULAR FILTRATION RATE > 60.0 (>56); GLUCOSE, FASTING 136 MG/DL (70-100); MAGNESIUM LEVEL 1.5 MG/DL (1.8-2.4); POTASSIUM SERUM 4.1 MEQ/L (3.5-5.1); SODIUM LEVEL 139 MEQ/L (136-145); TOTAL PROTEIN 7.7 GM/DL (6.4-8.2)
[2019-12-05] MEDS: HumaLOG INSULIN (NovoLOG) PER UNIT SC SCH ×4 (07:30→21:00)
[2019-12-05] MEDS: OMEPRAZOLE 20 MG CAP PO SCH (08:55)
[2019-12-05] MEDS: amLODIPine 10 MG TAB PO SCH (08:55)
[2019-12-05] MEDS: LOSARTAN 50MG TABLET PO SCH (08:55)
[2019-12-05] MEDS: atenoloL 50 MG TAB PO SCH (08:56)
[2019-12-05] MEDS: hydroCHLOROthiazide 12.5 MG CAPSULE PO SCH (08:56)
[2019-12-05] MEDS ORDERED: ATORVASTATIN 20 MG TAB PO SCH (09:00)
[2019-12-05] MEDS ORDERED: gemfibroziL 600 MG TAB PO SCH (09:00)
[2019-12-05] MEDS: HEPARIN SOD (PORCINE) 5000UNITS/ML VIAL (J1644 PER 1000UNITS) SC SCH ×2 (09:50→21:25)
--- NOTE | 2019-12-05 12:21 | IPNPDOC ---
Text Note Date of Service The patient was seen on 12/05/19. NOTE Patient seen and examined this morning. Denies any overnight events. Couldn't get an MRI as the patient has a stimulator. PHYSICAL EXAMINATION: General: The patient is awake, alert, oriented x3, sitting up in the bed in no apparent distress. Head and Neck Exam: Extraocular muscles intact. Pupils equally round and reactive to light. Mucous membranes are moist. Neck is supple. There is no jugular venous distention (JVD). Cardiovascular: S1 and S2, regular rate. Trace edema of the bilateral lower extremities. Respiratory: Lungs clear auscultation Abdomen: Right upper quadrant pain with epigastric pain rebound, no guarding no rigidity Musculoskeletal: Clubbing of the fingernails, no cyanosis was noted. Central Nervous System (ROLLER REPAIRER): No focal deficit. Power is 5/5 in all extremities. Assessment and plan Patient is 54 years old male with past medical history of hypertension, hyperlipidemia, acid reflux, diabetes mellitus type2 presented to the hospital w ith right upper quadrant pain. Patient stated that for past few months he had been having intermittent right upper quadrant pain after fatty meal. Patient's saw doctor Letha around 3 weeks ago due to elevated LFT . However patient has increased right upper quadrant pain associated with nausea, he called to the GI office and he was recommended to come to emergency room. In ER patient was found to have transaminitis with total bilirubin 1.2, alkaline phosphatase 550. Dr. Monae has been consulted and he recommended to admit the patient for MRCP and to start Zosyn IV. MRCP cannot be done as the patient has a stimulator. They're awaiting his accommodation. No Problems (1) Abdominal paiN. Most likely secondary to choledocholithiasis or malignancy CT scan from October 2019 showed Intrahepatic and extrahepatic biliary ductal dilatation with the common bile duct measuring up to 16 mm diameter. Obstructing lesion at the level of the ampulla cannot be excluded. Correlation with ERCP may be of value. Few mildly prominent lymph nodes in the region of the harrison hepatis are identified raising suspicion for underlying pathology including neoplasm. Dr Monae was contacted by phone he recommended MRCP , which could not be done and Zosyn IV has been continued. Patient doesn't have fever, no leukocytosis, total bilirubin mildly elevated to 1.2, direct 0.7. Patient was tested for hepatitis recently and result was negative Nothing by mouth for now (2) Hypertension: Continue home medication not contraindicated (3) Diabetes mellitus. Sliding scale insulin (4) Transaminitis. Stable. Unknown etiology for now, could be secondary to choledocholithiasis, malignancy or medication side effect. Statins are on hold Also we'll hold gemfibrozil which can be cause of abdominal pain and cholelith iasis . Patient was tested for hepatitis recently and result was negative Further care as per recommendation by GI. Disposition. Unknown at this time VS,Purae, I+O VS, Fishbone, I+O Laboratory Tests 12/05/19 05:50 Vital Signs Date Time Temp Pulse Resp B/P (MAP) Pulse Ox O2 Delivery O2 Flow Rate FiO2 12/05/19 08:56 63 127/77 12/05/19 06:00 98.1 16 97 Room Air I&O- Last 24 Hours up to 6 AM 12/05/19 06:00 Intake Total 940 ml Output Total 1400 ml Balance -460 ml YAJAIRA WALLACE MD Dec 05, 2019 12:21
[2019-12-05] MEDS ORDERED: ISOVUE-300 61% 50ML VIAL As Ordered ONE (15:41)
[2019-12-05] MEDS ORDERED: ROCURONIUM BROMIDE 50 MG/5 ML VIAL As Ordered ONE ×2 (16:33→17:23)
[2019-12-05] MEDS ORDERED: LIDOCAINE 2% 100MG/5ML SDV (FOR ANES.) As Ordered ONE (16:33)
[2019-12-05] MEDS ORDERED: fentaNYL 100 MCG/2 ML INJECTION (J3010) As Ordered ONE (16:33)
[2019-12-05] MEDS ORDERED: propofoL 200 MG/20 ML VIAL As Ordered ONE (16:33)
[2019-12-05] MEDS ORDERED: MIDAZOLAM INJ 2MG/2ML VIAL (J2250 PER 1MG) As Ordered ONE (16:34)
[2019-12-05] MEDS ORDERED: ePHEDrine SULFATE 25 MG/5 ML(5MG/ML) SYRINGE As Ordered ONE (17:06)
[2019-12-05] MEDS ORDERED: dexameTHASONE 4 MG/ML 1ML VIAL (J1100 PER 1MG) As Ordered ONE (17:06)
[2019-12-05] MEDS ORDERED: SUGAMMADEX SODIUM 500 MG/5 ML VIAL (BRIDION) As Ordered ONE (17:18)
[2019-12-05] MEDS ORDERED: ONDANSETRON 4MG/2ML VIAL As Ordered ONE (17:18)
[2019-12-05] MEDS ORDERED: GLYCOPYRROLATE INJ 0.2 MG/ML 2 ML VIAL As Ordered ONE (17:23)
[2019-12-05] MEDS ORDERED: MEPERIDINE INJ 25 MG/ML VIAL (J2175) IV PRN (18:30)
[2019-12-05] MEDS ORDERED: fentaNYL 100 MCG/2 ML INJECTION (J3010) IV PRN (18:30)
[2019-12-05] MEDS ORDERED: ONDANSETRON 4MG/2ML VIAL IV PRN (18:30)
[2019-12-05] MEDS ORDERED: PERCOCET 5MG/325MG TAB PO PRN (18:30)
[2019-12-05] MEDS ORDERED: LR 1,000 ML IV SCH (18:30)
[2019-12-05] MEDS ORDERED: METOCLOPRAMIDE INJ 10MG/2ML VIAL (J2765 PER 1) IV PRN (18:30)
--- NOTE | 2019-12-05 18:36 | ROOR ---
Patient Name: Rosa Healy Procedure Date: 12/05/2019 4:43 PM Date of : 1965 Age: 54 Room: Main OR Gender: Male Note Status: Finalized Procedure: ERCP Indications: Abdominal pain of suspected biliary origin, Biliary dilation on Computed Tomogram Scan, Biliary dilation on Ultrasound, Suspected ascending cholangitis, Elevated liver enzymes Providers: Kj MONAE MD Referring MD: 2. Inpatient 2. Inpatient, JANETH Chun Requesting Provider: Medicines: General Anesthesia Complications: No immediate complications. Procedure: Pre-Anesthesia Assessment: - The heart rate, respiratory rate, oxygen saturations, blood pressure, adequacy of pulmonary ventilation, and response to care were monitored throughout the procedure. The Duodenoscope was introduced through the mouth, and advanced to the duodenum and used to inject contrast into the bile duct. The ERCP was accomplished without difficulty. The patient tolerated the procedure well. Findings: The shearing machine feeder film was normal. The esophagus was successfully intubated under direct vision. The scope was advanced to a normal major papilla in the descending duodenum without detailed examination of the pharynx, larynx and associated structures, and upper GI tract. The upper GI tract was grossly normal. A straight Roadrunner wire was passed into the biliary tree. The short-nosed traction sphincterotome was passed over the guidewire and the bile duct was then deeply cannulated. Contrast was injected. I personally interpreted the bile duct images. Ductal flow of contrast was adequate. Image quality was adequate. Contrast extended to the main bile duct. Opacification of the entire opacified area was successful. The maximum diameter of the ducts was 18 mm. The lower third of the main bile duct contained two stones and sludge, the largest of which was 18 mm in diameter. A 10 mm biliary sphincterotomy was made with a traction (standard) sphincterotome using ERBE electrocautery. There was no post-sphincterotomy bleeding. The biliary tree was swept with a 15 mm balloon starting at the bifurcation. The stones partially fragmented and debris and sludge was swept from the duct. Residual stone fragments were still seen after balloon sweep and were unable to be removed with this method. I decided to try to remove remaining fragments with lithotripsy. Lithotripsy with the mechanical lithotripter was unsuccessful because the stone could not be trapped. One 10 Fr by 7 cm temporary plastic stent was placed into the common bile duct. Bile flowed through the stent. The stent was in good position. The very distal bile duct tapers abruptly towards the papilla. This is likely related to overall biliary dilation more proximally. I do not see a stricture. In view of possible lymphadenopathy seen on CT scan, I decided to sample the distal bile duct for pathology. Cells for cytology were obtained by brushing in the lower third of the main bile duct. Impression: - The entire main bile duct was dilated, with an obstruction caused by two large stones and biliary sludge. - Choledocholithiasis was found. Only partial removal was accomplished with biliary sphincterotomy; a stent was inserted. - A biliary sphincterotomy was performed. - The biliary tree was swept and debris was found. - Lithotripsy was unsuccessful because the stone could not be trapped. - One temporary plastic stent was placed into the common bile duct. - Cells for cytology obtained in the lower third of the main duct. Recommendation: - Repeat ERCP in 3 months to remove any remaining stones and the stent. - Return to my office in 2 months. (- Refer to a surgeon for cholecystectomy after all stones/sludge have been cleared at appointment to be scheduled.) Kj Monae MD Kj MONAE MD 12/05/2019 6:36:04 PM Electronically signed by Kj MONAE MD Number of Addenda: 0 Note Initiated On: 12/05/2019 4:43 PM Estimated Blood Loss: Estimated blood loss: none.
[2019-12-06] MEDS: NS 1,000 ML IV SCH ×2 (02:30→07:55)
[2019-12-06] MEDS: PIPERACILLIN/TAZOBACTAM SOD 3.375 GM in D5W MINI-BAG PLUS 50 ML IV SCH (06:05)
[2019-12-06 06:18] VITALS: BP 158/85
[2019-12-06 07:18] LABS: HEMATOCRIT 32.7 % (42.0-52.0); HEMOGLOBIN 11.3 g/dl (13.5-17.5); MEAN CORPUSCULAR HEMOGLOBIN 32.7 pg (27.0-33.0); MEAN CORPUSCULAR HGB CONC 34.6 g/dl (32.0-36.5); MEAN CORPUSCULAR VOLUME 94.5 fl (80.0-96.0); PLATELET COUNT, AUTOMATED 236 10^3/uL (150-450); RED BLOOD COUNT 3.46 10^6/uL (4.30-6.10); WHITE BLOOD COUNT 6.9 10^3/uL (4.0-10.0)
[2019-12-06] MEDS: HumaLOG INSULIN (NovoLOG) PER UNIT SC SCH (07:30)
[2019-12-06 07:50] LABS: ALBUMIN 3.3 GM/DL (3.2-5.2); ALT/SGPT 99 U/L (12-78); BILIRUBIN,TOTAL 1.1 MG/DL (0.2-1.0); BLOOD UREA NITROGEN 17 MG/DL (7-18); CALCIUM LEVEL 9.1 MG/DL (8.5-10.1); CARBON DIOXIDE LEVEL 27 MEQ/L (21-32); CHLORIDE LEVEL 102 MEQ/L (98-107); CREATININE FOR GFR 1.17 MG/DL (0.70-1.30); GLOMERULAR FILTRATION RATE > 60.0 (>56); GLUCOSE, FASTING 193 MG/DL (70-100); POTASSIUM SERUM 4.3 MEQ/L (3.5-5.1); SODIUM LEVEL 136 MEQ/L (136-145); TOTAL PROTEIN 7.2 GM/DL (6.4-8.2)
--- NOTE | 2019-12-06 08:05 | REP ---
REASON FOR EXAM: ERCP with stent placement. 38 fluoroscopic views were obtain in my [place] using a portable C-arm device during ERCP. 4 minutes and 38 seconds of fluoroscopy time was provided to Dr. Kj Monae for the procedure. The examination shows varying degrees of opacification of the common bile duct with the final imaging showing a stent within the common bile duct. No abnormal filling defects are identified in the common bile duct. Electronically Signed by Rufino Francois DO 12/06/2019 08:11 A
[2019-12-06] MEDS: HEPARIN SOD (PORCINE) 5000UNITS/ML VIAL (J1644 PER 1000UNITS) SC SCH (09:00)
[2019-12-06] MEDS: hydroCHLOROthiazide 12.5 MG CAPSULE PO SCH (09:30)
[2019-12-06] MEDS: OMEPRAZOLE 20 MG CAP PO SCH (09:30)
[2019-12-06 09:31] VITALS: BP 158/85
[2019-12-06] MEDS: atenoloL 50 MG TAB PO SCH (09:31)
[2019-12-06] MEDS: LOSARTAN 50MG TABLET PO SCH (09:31)
[2019-12-06] MEDS: amLODIPine 10 MG TAB PO SCH (09:31)
[2019-12-06 10:00] VITALS: BP 174/99
--- NOTE | 2019-12-06 10:46 | DS.PDOC ---
Discharge Summary General Date of Admission Dec 04, 2019 at 14:15 Date of Discharge Chief complaints Abdominal pain Final diagnosis CBD stone Transaminitis History of present illness and Hospital course Patient is 54 years old male with past medical history of hypertension, hyperlipidemia, acid reflux, diabetes mellitus type2 presented to the hospital with right upper quadrant pain. Patient stated that for past few months he had been having intermittent right upper quadrant pain after fatty meal. Patient's saw doctor Letha around 3 weeks ago due to elevated LFT . However patient has increased right upper quadrant pain associated with nausea, he called to the GI office and he was recommended to come to emergency room. In ER patient was found to have transaminitis with total bilirubin 1.2, alkaline phosphatase 550. Dr. Monae has been consulted and he recommended to admit the patient for MRCP and to start Zosyn IV. MRCP cannot be done as the patient has a stimulator. His abdominal pain was most likely secondary to choledocholithiasis and the CBD stone ,CT scan from October 2019 showed Intrahepatic and extrahepatic biliary ductal dilatation with the common bile duct measuring up to 16 mm diameter. Obstructing lesion at the level of the ampulla cannot be excluded. Few mildly prominent lymph nodes in the region of the harrison hepatis are identified raising suspicion for underlying pathology including neoplasm. Dr Monae was contacted by phone he recommended MRCP , which could not be done as patient has spinal stimulator and Zosyn IV has been continued. Patient doesn't have fever, no leukocytosis, total bilirubin mildly elevated to 1.2, direct 0.7. Patient was tested for hepatitis recently and result was negative.ERCP was done which showed The entire main bile duct was dilated, with an obstruction caused by two large stones and biliary sludge. Choledocholithiasis was found. Only partial removal was accomplished with biliary sphincterotomy; a stent was inserted. A biliary sphincterotomy was performed. The biliary tree was swept and debris was found. Also Lithotripsy was unsuccessful because the stone could not be trapped. One temporary plastic stent was placed into the common bile duct. The patient will need to go and follow with GI as an outpatient within 3 weeks. The stent removed. I have given him the importance of follow-up. I have also advised him that in case her symptoms reappear specially, vomiting, nausea, fevers, chills, abdominal pain, even before 3 weeks, he should come to the ER. [facility] clinic as soon as possible. She is medically optimized for discharge. The patient has no signs of cholangitis and antiemetics has been discontinued. PHYSICAL EXAMINATION: General: The patient is awake, alert, oriented x3, sitting up in the bed in no apparent distress. Head and Neck Exam: Extraocular muscles intact. Pupils equally round and reactive to light. Mucous membranes are moist. Neck is supple. There is no jugular venous distention (JVD). Cardiovascular: S1 and S2, regular rate. Trace edema of the bilateral lower extremities. Respiratory: Lungs clear auscultation Abdomen: Nontender no rebound, no guarding no rigidity Musculoskeletal: Clubbing of the fingernails, no cyanosis was noted. Central Nervous System (CHAIRMAN & CEO): No focal deficit. Power is 5/5 in all extremities. Medications. As per discharge reconciliation medication list Activity as tolerated Diet. 2 g sodium diet Follow-up appointments. PCP in 1 week, GI in 3 weeks Condition on discharge. Patient is medically optimized for discharge Discharge disposition: Home Total time spent on this discharge including coordination of care, review of chart documentation and actual contact is around 35 minutes Discharge Summary PROCEDURES PERFORMED DURING STAY: [None]. ADMITTING DIAGNOSES: 1. . DISCHARGE DIAGNOSES: 1. . COMPLICATIONS/CHIEF COMPLAINT: Abdominal Pain. HISTORY OF PRESENT ILLNESS: . HOSPITAL COURSE: . DISCHARGE MEDICATIONS: Please see below. ALLERGIES: Please see below. PHYSICAL EXAMINATION ON DISCHARGE: VITAL SIGNS: Please see below. GENERAL: HEENT: NECK: CARDIOVASCULAR EXAMINATION: RESPIRATORY EXAMINATION: ABDOMINAL EXAMINATION: EXTREMITIES: SKIN: NEUROLOGICAL EXAMINATION: PSYCHIATRIC EXAMINATION: LABORATORY DATA: Please see below. IMAGING: PROGNOSIS: ACTIVITY: [As tolerated]. DIET: DISCHARGE PLAN: DISPOSITION: . DISCHARGE INSTRUCTIONS: 1. . ITEMS TO FOLLOWUP ON ON OUTPATIENT: 1. . DISCHARGE CONDITION: [Stable]. TIME SPENT ON DISCHARGE: Greater than minutes. Vital Signs/I&Os Vital Signs Date Time Temp Pulse Resp B/P (MAP) Pulse Ox O2 Delivery O2 Flow Rate FiO2 12/06/19 09:31 158/85 12/06/19 09:31 57 12/06/19 06:18 98.1 17 98 Room Air I&O- Last 24 Hours up to 6 AM 12/06/19 06:00 Intake Total 2900 ml Output Total 0 ml Balance 2900 ml Laboratory Data Labs 24H Laboratory Tests 2 12/05/19 11:47: Bedside Glucose (Misc Panel) 161H 12/05/19 19:59: Bedside Glucose (Misc Panel) 194H 12/06/19 06:53: Nucleated Red Blood Cells % (auto) 0.0, Anion Gap 7L, Glomerular Filtration Rate > 60.0, Calcium Level 9.1, Total Bilirubin 1.1H, Aspartate Amino Transf (AST/SGOT) 53H, Alanine Aminotransferase (ALT/SGPT) 99H, Alkaline Phosphatase 448H, Total Protein 7.2, Albumin 3.3, Albumin/Globulin Ratio 0.8 CBC/BMP Laboratory Tests 12/06/19 06:53 FSBS Laboratory Tests Test 12/05/19 11:47 12/05/19 19:59 Range/Units Bedside Glucose (Misc Panel) 161 194 70-105 MG/DL Microbiology Microbiology 12/04/19 Respiratory Virus Panel (PCR) (KIT) - Final, Complete Discharge Medications Scheduled Amlodipine Besylate (Amlodipine Besylate) 10 Mg Tablet, 10 MG PO DAILY, (Reported) Atenolol (Atenolol) 50 Mg Tab, 50 MG PO DAILY, (Reported) Atorvastatin Calcium (Atorvastatin Calcium) 80 Mg Tablet, 80 MG PO DAILY, (Reported) Dextroamphetamine/Amphetamine (Adderall 30 mg Tablet) 30 Mg Tablet, 30 MG PO BID, (Reported) TAKES AM/AFTERNOON Gemfibrozil (Gemfibrozil) 600 Mg Tab, 600 MG PO DAILY, (Reported) Glimepiride (Glimepiride) 4 Mg Tablet, 4 MG PO DAILY, (Reported) Hydrochlorothiazide (Hydrochlorothiazide) 12.5 Mg Capsule, 12.5 MG PO DAILY, (Reported) Losartan Potassium (Losartan Potassium) 100 Mg Tab, 100 MG PO DAILY, (Reported) Metformin HCl (Metformin HCl) 1,000 Mg Tablet, 1,000 MG PO BIDWM, (Reported) Omeprazole (Omeprazole) 20 Mg Cap, 20 MG PO DAILY, (Reported) Scheduled PRN Naproxen Sodium (Aleve) 220 Mg Tablet, 440 MG PO BID PRN for PAIN, (Reported) Allergies Coded Allergies: No Known Allergies (Unverified , 12/04/19) YAJAIRA WALLACE MD Dec 06, 2019 10:46
== END 2019-12-06 11:07 | disposition home or self-care (01) | DRG 446 ==
LOC: M ED 11:31 → M ED INP 14:15 → ENRESERV 14:56 → M MS5PR 15:45
PROVIDERS: ADMIT Internal Medicine; ATTEND Internal Medicine
PROC: 0F798DZ Dilation of Common Bile Duct with Intraluminal Device, Via Natural or Artificial Opening Endoscopic (ICD-10-PCS; 2019-12-05)
PROC: 0FC98ZZ Extirpation of Matter from Common Bile Duct, Via Natural or Artificial Opening Endoscopic (ICD-10-PCS; principal; 2019-12-05 16:00)
DX: K80.51 Calculus of bile duct without cholangitis or cholecystitis with obstruction (principal); R74.0 Nonspecific elevation of levels of transaminase and lactic acid dehydrogenase [LDH]; I10 Essential (primary) hypertension; E11.9 Type 2 diabetes mellitus without complications; E78.5 Hyperlipidemia, unspecified; K21.9 Gastro-esophageal reflux disease without esophagitis; Z79.899 Other long term (current) drug therapy; M19.90 Unspecified osteoarthritis, unspecified site; Z96.642 Presence of left artificial hip joint; Z87.891 Personal history of nicotine dependence

== ENCOUNTER → 2020-02-10 | Outpatient (CLI) | payer OTHER ==
[~2020-02-10] MED LIST changes: +ADDE30TA PO; +ALEV220T22 PO; +AMLO1TAB24 PO; +AMLO1TAB25 PO; -AMLO5TAB6 PO; +ATOR80TA59 PO; +GLIM4TAB5 PO; +HYDR12CA PO; +METF-877 PO
== END ==
LOC: M LABSMTC 08:38
PROVIDERS: ATTEND Anesthesiology
DX: Z01.812 Encounter for preprocedural laboratory examination (principal); Z20.828 Contact with and (suspected) exposure to other viral communicable diseases
CPT/HCPCS: C9803; U0003

== ENCOUNTER 2020-02-15 13:28 | Day surgery (SDC) | payer OTHER ==
[~2020-02-15] VITALS: Ht 180.3 cm; Wt 104.3 kg
[~2020-02-15 13:28] MED LIST changes: +LR 1,000 ML IV ONE; +NS 1,000 ML IV ONE
[2020-02-15] MEDS ORDERED: ISOVUE-300 61% 50ML VIAL As Ordered ONE (13:50)
[2020-02-15] MEDS ORDERED: SUGAMMADEX SODIUM 500 MG/5 ML VIAL (BRIDION) As Ordered ONE (15:48)
[2020-02-15] MEDS ORDERED: MIDAZOLAM INJ 2MG/2ML VIAL (J2250 PER 1MG) As Ordered ONE (15:48)
[2020-02-15] MEDS ORDERED: dexameTHASONE 4 MG/ML 1ML VIAL (J1100 PER 1MG) As Ordered ONE (15:48)
[2020-02-15] MEDS ORDERED: propofoL 200 MG/20 ML VIAL As Ordered ONE (15:48)
[2020-02-15] MEDS ORDERED: ROCURONIUM BROMIDE 50 MG/5 ML VIAL As Ordered ONE (15:48)
[2020-02-15] MEDS ORDERED: ONDANSETRON 4MG/2ML VIAL As Ordered ONE (15:48)
[2020-02-15] MEDS ORDERED: LIDOCAINE 2% 100MG/5ML SDV (FOR ANES.) As Ordered ONE (15:48)
[2020-02-15] MEDS ORDERED: fentaNYL 100 MCG/2 ML INJECTION (J3010) As Ordered ONE ×2 (15:49→16:47)
[2020-02-15] MEDS ORDERED: GLYCOPYRROLATE INJ 0.2 MG/ML 2 ML VIAL As Ordered ONE (16:32)
--- NOTE | 2020-02-15 17:49 | ROOR ---
Patient Name: Rosa Healy Procedure Date: 02/15/2020 3:00 PM Date of : 1965 Age: 54 Room: [facility] Gender: Male Note Status: Finalized Procedure: ERCP Indications: Bile duct stone(s), Biliary stent removal, Prior biliary endoscopic sphincterotomy, Prior endoscopic retrograde ampullary/ papillary stent placement, Prior ampullary/ papillary stone removal Providers: Kj MONAE MD Referring MD: JANETH Chun Requesting Provider: Medicines: Monitored Anesthesia Care Complications: No immediate complications. Procedure: Pre-Anesthesia Assessment: - The heart rate, respiratory rate, oxygen saturations, blood pressure, adequacy of pulmonary ventilation, and response to care were monitored throughout the procedure. The Duodenoscope was introduced through the mouth, and advanced to the duodenum and used to inject contrast into the bile duct. The ERCP was accomplished without difficulty. The patient tolerated the procedure well. Findings: A biliary stent was visible on the solar fabrication technician film. The esophagus was successfully intubated under direct vision without detailed examination of the pharynx, larynx, and associated structures, and upper GI tract. The upper GI tract was grossly normal. One temporary stent originating in the biliary tree was emerging from the major papilla. One stent was removed from the biliary tree using a rat-toothed forceps. A previous sphincterotomy had already been performed, the papilla is widely patent. A wire was passed into the biliary tree. A wire was passed into the biliary tree. The bile duct was then deeply cannulated over the guidewire. Contrast was injected. I personally interpreted the bile duct images. Ductal flow of contrast was adequate. Image quality was adequate. Contrast extended to the entire biliary tree. Opacification of the entire biliary tree was successful. The maximum diameter of the ducts was 10 mm. The lower third of the main bile duct and middle third of the main bile duct contained three stones, the largest of which was 10 mm in diameter. Lithotripsy with the mechanical lithotripter was successful for stone fragmentation and removal. The biliary tree was swept with a 12 mm balloon starting at the bifurcation. Sludge was swept from the duct. All stones were removed. Impression: - One stent from the biliary tree was seen in the major papilla. - One stent was removed from the biliary tree. - Choledocholithiasis was found. - Lithotripsy was performed for stone fragmentation.- The biliary tree was then swept with a balloon - Complete removal of debris and sludge was acomplished with balloon extraction. Recommendation: - Surgical consultation for consideration of cholecystectomy at the next available appointment. -You will hear from me or the surgeons office in the next 5-10 days for an appointment to discuss gallbladder removal. Kj Monae MD Kj MONAE MD 02/15/2020 5:47:59 PM Electronically signed by Kj MONAE MD Number of Addenda: 0 Note Initiated On: 02/15/2020 3:00 PM Estimated Blood Loss: Estimated blood loss: none.
[2020-02-15 18:45] VITALS: BP 170/93
[2020-02-15] MEDS ORDERED: fentaNYL 100 MCG/2 ML INJECTION (J3010) IV PRN (19:00)
[2020-02-15] MEDS ORDERED: PERCOCET 5MG/325MG TAB PO PRN (19:00)
[2020-02-15] MEDS ORDERED: ONDANSETRON 4MG/2ML VIAL IV PRN (19:00)
[2020-02-15] MEDS ORDERED: LR 1,000 ML IV SCH (19:00)
[2020-02-15] MEDS ORDERED: METOCLOPRAMIDE INJ 10MG/2ML VIAL (J2765 PER 1) IV PRN (19:00)
--- NOTE | 2020-02-21 13:51 | REP ---
C-ARM VIEWS DURING ERCP HISTORY: Biliary ductal dilatation. TECHNIQUE: Multiple C-arm views are performed during ERCP exam. FINDINGS: The endoscope is visualized. The common bile duct is catheterized. Contrast is injected into the biliary system and the multiple images obtained show variable opacification. Catheter manipulation is performed in the common bile duct. There are multiple nonpersistent filling defects, which appear to represent air bubbles. Six minutes 29 seconds of fluoroscopy time is utilized for the procedure. [facility]LANDJaquelin
== END 2020-02-15 18:50 | disposition home or self-care (01) ==
LOC: M SDC 13:28
PROVIDERS: ATTEND Internal Medicine Gastroenterology
DX: K80.50 Calculus of bile duct without cholangitis or cholecystitis without obstruction (principal); Z46.59 Encounter for fitting and adjustment of other gastrointestinal appliance and device; I10 Essential (primary) hypertension; E78.2 Mixed hyperlipidemia; E11.9 Type 2 diabetes mellitus without complications; K21.9 Gastro-esophageal reflux disease without esophagitis; Z79.899 Other long term (current) drug therapy; Z79.84 Long term (current) use of oral hypoglycemic drugs; E66.9 Obesity, unspecified
CPT/HCPCS: 43265; 43275; 74330; J1100; J2250; J2405; J3010; Q9967

== ENCOUNTER → 2020-03-05 | Outpatient (CLI) | payer OTHER ==
[~2020-03-05] MED LIST changes: -LR 1,000 ML IV ONE; -NS 1,000 ML IV ONE
== END ==
LOC: M LABSMTC 11:06
PROVIDERS: ATTEND Anesthesiology
DX: Z01.812 Encounter for preprocedural laboratory examination (principal); Z20.828 Contact with and (suspected) exposure to other viral communicable diseases
CPT/HCPCS: C9803; U0003

== ENCOUNTER 2020-03-10 06:09 | Day surgery (SDC) | payer OTHER ==
[~2020-03-10] VITALS: Ht 180.3 cm; Wt 99.3 kg
[~2020-03-10 06:09] MED LIST changes: +LR 1,000 ML IV ONE
[2020-03-10] MEDS ORDERED: BUPIVACAINE/EPIN 0.5% 30 ML VIAL As Ordered ONE (07:13)
[2020-03-10] MEDS ORDERED: ePHEDrine SULFATE 25 MG/5 ML(5MG/ML) SYRINGE As Ordered ONE (07:49)
[2020-03-10] MEDS ORDERED: LIDOCAINE 2% 100MG/5ML SDV (FOR ANES.) As Ordered ONE (07:49)
[2020-03-10] MEDS ORDERED: propofoL 200 MG/20 ML VIAL As Ordered ONE (07:49)
[2020-03-10] MEDS ORDERED: ROCURONIUM BROMIDE 50 MG/5 ML VIAL As Ordered ONE (07:49)
[2020-03-10] MEDS ORDERED: MIDAZOLAM INJ 2MG/2ML VIAL (J2250 PER 1MG) As Ordered ONE (07:49)
[2020-03-10] MEDS ORDERED: fentaNYL 250 MCG/5 ML INJECTION (J3010) As Ordered ONE (07:49)
[2020-03-10] MEDS ORDERED: dexameTHASONE 4 MG/ML 1ML VIAL (J1100 PER 1MG) As Ordered ONE (07:49)
[2020-03-10] MEDS ORDERED: ONDANSETRON 4MG/2ML VIAL As Ordered ONE (08:03)
[2020-03-10] MEDS ORDERED: KETOROLAC 60MG 2ML VIAL As Ordered ONE (08:03)
[2020-03-10] MEDS ORDERED: SUGAMMADEX SODIUM 500 MG/5 ML VIAL (BRIDION) As Ordered ONE (08:24)
[2020-03-10] MEDS ORDERED: LR 1,000 ML IV SCH (09:00)
[2020-03-10] MEDS ORDERED: fentaNYL 100 MCG/2 ML INJECTION (J3010) IV PRN (09:00)
[2020-03-10] MEDS ORDERED: MORPHINE 2 MG/ML 1ML VIAL (J2270) IV PRN (09:00)
[2020-03-10] MEDS ORDERED: ONDANSETRON 4MG/2ML VIAL IV PRN (09:00)
[2020-03-10] MEDS ORDERED: NORCO, ANEXSIA 5/325MG TABLET (HYDROcodone/ACETAMINOPHEN) PO PRN (09:00)
[2020-03-10] MEDS ORDERED: PERCOCET 5MG/325MG TAB PO PRN (09:00)
[2020-03-10 10:55] VITALS: BP 129/66
--- NOTE | 2020-03-10 13:16 | RO ---
DATE OF OPERATION: 03/10/2020 PREOPERATIVE DIAGNOSIS: Symptomatic cholelithiasis. POSTOPERATIVE DIAGNOSIS: Symptomatic cholelithiasis. PROCEDURE: Robotic cholecystectomy. SURGEON: Jose Koch MD ASSIST: Jania Perry ANESTHESIA: General. EBL: 10. COMPLICATIONS: None. INDICATIONS FOR PROCEDURE: The patient is a 54-year-old male who [facility]. He also had history of choledocholithiasis and underwent an ERCP and stent placement and removal for that. He is now here for cholecystectomy. Risks and benefits of the procedure were not limited to, but included bleeding, infection, hernia formation, damage to surrounding structures and need for further surgery were discussed in detail with the patient. Informed consent was obtained and procedure was planned. PROCEDURE: The patient was brought back to operating room 7. After sufficient sedation, the abdomen was sterilely prepped and draped. Next, time out was done to confirm proper patient and proper procedure. Following that, an 8 mm incision was made in the left upper quadrant, Veress needle was inserted and the abdomen was insufflated to 15 mmHg. Veress needle was then removed and an 8 mm Optiview port was used to gain access to the abdomen. Once the abdomen was entered, there were no obvious large adhesions. The gallbladder was visualized. The three remaining ports were placed across right upper quadrant. The robot was docked to the ports. Once the robot was docked from the console, there were omental adhesions along the entire gallbladder body and these were taken down using sharp dissection and cautery. Once that was completed the gallbladder fundus was elevated up towards the right shoulder. Cystic duct and cystic artery were dissected free using combination of blunt and sharp dissection. Once they were clearly identified they were both doubly clipped and cut. The gallbladder was then dissected free from the gallbladder fossa using electrocautery. It was removed intact and placed inside of a 5 mm Endo Catch bag and brought out through the right lateral port site. Once the gallbladder was removed 2-0 V-Loc was used to reapproximate the fascia and the peritoneum at the right lateral port site, one from the gallbladder removal. Once that was completed, the abdomen was examined one last time to confirm hemostasis. The abdomen was then desufflated. Skin incisions were closed with 4-0 Vicryl subcuticular sutures. The abdomen was cleaned and dried, and Steri-Strips, 4 x 4 and tape were applied. edited: 03/13/2020 [id number] tkf USHA
== END 2020-03-10 11:00 | disposition home or self-care (01) ==
LOC: M SDC 06:09
PROVIDERS: ATTEND Surgery
DX: K80.10 Calculus of gallbladder with chronic cholecystitis without obstruction (principal); I10 Essential (primary) hypertension; E78.5 Hyperlipidemia, unspecified; E11.9 Type 2 diabetes mellitus without complications; K21.9 Gastro-esophageal reflux disease without esophagitis; Z79.84 Long term (current) use of oral hypoglycemic drugs; Z79.899 Other long term (current) drug therapy; Z87.891 Personal history of nicotine dependence
CPT/HCPCS: 47562; 88304; J1100; J1885; J2250; J2405; J3010; S2900

== ENCOUNTER → 2020-04-04 | Outpatient (REF) | payer OTHER ==
[~2020-04-04] MED LIST changes: -LR 1,000 ML IV ONE
[2020-04-04 14:15] LABS: HEMOGLOBIN A1c 5.7 %
[2020-04-04 14:36] LABS: ALBUMIN 4.4 GM/DL (3.2-5.2); ALT/SGPT 54 U/L (12-78); BILIRUBIN,TOTAL 0.4 MG/DL (0.2-1.0); BLOOD UREA NITROGEN 17 MG/DL (7-18); CALCIUM LEVEL 9.3 MG/DL (8.5-10.1); CARBON DIOXIDE LEVEL 30 MEQ/L (21-32); CHLORIDE LEVEL 104 MEQ/L (98-107); CHOLESTEROL LEVEL 189 MG/DL (<200); CREATININE FOR GFR 0.89 MG/DL (0.70-1.30); GLOMERULAR FILTRATION RATE > 60.0 (>56); GLUCOSE, FASTING 138 MG/DL (70-100); HDL CHOLESTEROL 60 MG/DL (>40); LDL CHOLESTEROL 106 MG/DL (<100); NON-HDL-C 129 MG/DL; POTASSIUM SERUM 4.2 MEQ/L (3.5-5.1); SODIUM LEVEL 140 MEQ/L (136-145); TOTAL PROTEIN 7.3 GM/DL (6.4-8.2); TRIGLYCERIDES LEVEL 116 MG/DL (<150)
[2020-04-04 19:14] LABS: MAU/CREAT RATIO 469.6 MCG/MG (0.0-30.0)
== END ==
LOC: M SFHCADAM 08:45
PROVIDERS: ATTEND Physician Assistant Medical
DX: E11.9 Type 2 diabetes mellitus without complications (principal); I10 Essential (primary) hypertension; E78.2 Mixed hyperlipidemia

== ENCOUNTER → 2020-10-03 | Outpatient (REF) | payer OTHER ==
[~2020-10-03] MED LIST changes: +LOPI600T
[2020-10-03 17:25] LABS: BASO # 0.1 10^3/uL (0.0-0.2); BASO % 0.7 % (0.0-1.0); EOS # 0.3 10^3/uL (0.0-0.5); EOS % 3.7 % (0.0-3.0); HEMATOCRIT 36.5 % (42.0-52.0); HEMOGLOBIN 12.8 g/dl (13.5-17.5); LYMPH # 1.8 10^3/uL (1.5-5.0); LYMPH % 24.9 % (24.0-44.0); MEAN CORPUSCULAR HEMOGLOBIN 34.1 pg (27.0-33.0); MEAN CORPUSCULAR HGB CONC 35.1 g/dl (32.0-36.5); MEAN CORPUSCULAR VOLUME 97.3 fl (80.0-96.0); MONO # 0.6 10^3/uL (0.0-0.8); MONO % 8.8 % (2.0-8.0); NEUTROPHILS # 4.5 10^3/uL (1.5-8.5); NEUTROPHILS % 61.5 % (36.0-66.0); PLATELET COUNT, AUTOMATED 270 10^3/uL (150-450); RED BLOOD COUNT 3.75 10^6/uL (4.30-6.10); WHITE BLOOD COUNT 7.3 10^3/uL (4.0-10.0)
[2020-10-03 17:56] LABS: ALBUMIN 4.1 GM/DL (3.2-5.2); ALT/SGPT 47 U/L (12-78); BILIRUBIN,TOTAL 0.5 MG/DL (0.2-1.0); BLOOD UREA NITROGEN 23 MG/DL (7-18); CALCIUM LEVEL 9.4 MG/DL (8.5-10.1); CARBON DIOXIDE LEVEL 28 MEQ/L (21-32); CHLORIDE LEVEL 104 MEQ/L (98-107); CHOLESTEROL LEVEL 162 MG/DL (<200); CHOLESTEROL RISK RATIO 3.767 (<5); GLOMERULAR FILTRATION RATE > 60.0 (>56); GLUCOSE, FASTING 256 MG/DL (70-100); HDL CHOLESTEROL 43 MG/DL (>40); LDL CHOLESTEROL 67 MG/DL (<100); NON-HDL-C 119 MG/DL; POTASSIUM SERUM 4.2 MEQ/L (3.5-5.1); SODIUM LEVEL 138 MEQ/L (136-145); TOTAL PROTEIN 7.3 GM/DL (6.4-8.2); TRIGLYCERIDES LEVEL 259 MG/DL (<150)
[2020-10-03 18:00] LABS: HEMOGLOBIN A1c 5.7 %
== END ==
LOC: M SFHCADAM 12:55
PROVIDERS: ATTEND Physician Assistant Medical
DX: K21.9 Gastro-esophageal reflux disease without esophagitis (principal); E11.9 Type 2 diabetes mellitus without complications; I10 Essential (primary) hypertension; E78.2 Mixed hyperlipidemia; F98.8 Other specified behavioral and emotional disorders with onset usually occurring in childhood and adolescence; K76.0 Fatty (change of) liver, not elsewhere classified
CPT/HCPCS: 80053; 80061; 83036; 84443; 85025; G0463

== ENCOUNTER → 2020-10-08 | Outpatient (REF) | payer OTHER ==
[~2020-10-08] MED LIST changes: -LOPI600T
[2020-10-08 13:01] LABS: BASO # 0.1 10^3/uL (0.0-0.2); BASO % 1.2 % (0.0-1.0); EOS # 0.3 10^3/uL (0.0-0.5); EOS % 3.7 % (0.0-3.0); HEMATOCRIT 39.1 % (42.0-52.0); HEMOGLOBIN 13.7 g/dl (13.5-17.5); LYMPH # 2.7 10^3/uL (1.5-5.0); LYMPH % 32.1 % (24.0-44.0); MEAN CORPUSCULAR HEMOGLOBIN 33.7 pg (27.0-33.0); MEAN CORPUSCULAR VOLUME 96.3 fl (80.0-96.0); MONO # 0.8 10^3/uL (0.0-0.8); MONO % 9.7 % (2.0-8.0); NEUTROPHILS # 4.4 10^3/uL (1.5-8.5); NEUTROPHILS % 53.2 % (36.0-66.0); PLATELET COUNT, AUTOMATED 313 10^3/uL (150-450); RED BLOOD COUNT 4.06 10^6/uL (4.30-6.10); WHITE BLOOD COUNT 8.4 10^3/uL (4.0-10.0)
[2020-10-08 13:25] LABS: PERCENT SATURATION 29.9 % (19.7-50.0)
[2020-10-08 13:32] LABS: FOLATE 10.6 NG/ML
== END ==
LOC: M SFHCADAM 08:10
PROVIDERS: ATTEND Physician Assistant Medical
DX: D64.9 Anemia, unspecified (principal); F15.20 Other stimulant dependence, uncomplicated

== ENCOUNTER → 2020-10-25 | Outpatient (CLI) | payer OTHER ==
[~2020-10-25] MED LIST changes: +LOPI600T
== END ==
LOC: M LABSMTC 11:02
PROVIDERS: ATTEND Anesthesiology
DX: Z01.812 Encounter for preprocedural laboratory examination (principal); Z20.822 Contact with and (suspected) exposure to COVID-19

== ENCOUNTER 2020-10-30 06:51 | Day surgery (SDC) | payer MEDICARE, OTHER ==
[~2020-10-30] VITALS: Ht 180.3 cm; Wt 98.4 kg
[~2020-10-30 06:51] MED LIST changes: +NS 1,000 ML IV ONE
[2020-10-30] MEDS ORDERED: propofoL 200 MG/20 ML VIAL As Ordered ONE ×3 (07:14→07:55)
[2020-10-30] MEDS ORDERED: LIDOCAINE 2% 100MG/5ML SDV (FOR ANES.) As Ordered ONE (07:14)
--- NOTE | 2020-10-30 08:00 | ROOR ---
Patient Name: Rosa Healy Procedure Date: 10/30/2020 7:35 AM Date of : 1965 Age: 54 Room: [facility] Gender: Male Note Status: Finalized Procedure: Colonoscopy Indications: High risk colon cancer surveillance: Personal history of colonic polyps, Family history of colon cancer Providers: Kj Monae MD Referring MD: JANETH Chun Requesting Provider: Medicines: Monitored Anesthesia Care Complications: No immediate complications. Procedure: Pre-Anesthesia Assessment: - The heart rate, respiratory rate, oxygen saturations, blood pressure, adequacy of pulmonary ventilation, and response to care were monitored throughout the procedure. The Colonoscope was introduced through the anus and advanced to the terminal ileum, with identification of the appendiceal orifice and IC valve. The colonoscopy was performed without difficulty. The patient tolerated the procedure well. The quality of the bowel preparation was good. Findings: The perianal and digital rectal examinations were normal. Four sessile polyps were found in the sigmoid colon, splenic flexure, ascending colon and cecum. The polyps were diminutive in size. These polyps were removed with a cold snare. Resection and retrieval were complete. A tattoo was seen at the splenic flexure. The tattoo site appeared normal. Small Internal Hemorrhoids. Impression: - Four diminutive polyps in the sigmoid colon, at the splenic flexure, in the ascending colon and in the cecum, removed with a cold snare. Resected and retrieved. - A tattoo was seen at the splenic flexure. The tattoo site appeared normal. - Small Internal Hemorrhoids. Recommendation: - Repeat colonoscopy in 3 years for surveillance. Procedure Code(s): --- Professional --- 92047, Colonoscopy, flexible; with removal of tumor(s), polyp(s), or other lesion(s) by snare technique Diagnosis Code(s): --- Professional --- Z86.010, Personal history of colonic polyps K63.5, Polyp of colon Z80.0, Family history of malignant neoplasm of digestive organs CPT copyright 2019 [employer]. All rights reserved. The codes documented in this report are preliminary and upon lead project manager review may be revised to meet current compliance requirements. Kj Monae MD Kj Monae MD 10/30/2020 7:59:17 AM Electronically signed by Kj Monae MD Number of Addenda: 0 Note Initiated On: 10/30/2020 7:35 AM Estimated Blood Loss: Estimated blood loss: none.
[2020-10-30 08:21] VITALS: BP 103/65
== END 2020-10-30 08:23 | disposition home or self-care (01) ==
LOC: M OPP 06:51
PROVIDERS: ATTEND Internal Medicine Gastroenterology
DX: Z12.11 Encounter for screening for malignant neoplasm of colon (principal); Z86.010 Personal history of colon polyps; Z80.0 Family history of malignant neoplasm of digestive organs; Z79.84 Long term (current) use of oral hypoglycemic drugs; Z79.891 Long term (current) use of opiate analgesic; Z79.899 Other long term (current) drug therapy; Z88.8 Allergy status to other drugs, medicaments and biological substances; Z87.891 Personal history of nicotine dependence

== ENCOUNTER → 2021-10-30 | Outpatient (REF) | payer MEDICARE ==
[~2021-10-30] MED LIST changes: -CITA40TA4 PO; +CITA40TA7 PO; +LOSA100T45 PO; -LOSA100T50 PO; -NS 1,000 ML IV ONE
[2021-10-30 16:49] LABS: BASO # 0.1 10^3/uL (0.0-0.2); BASO % 0.8 % (0.0-1.0); EOS # 0.3 10^3/uL (0.0-0.5); HEMATOCRIT 33.9 % (42.0-52.0); LYMPH # 1.7 10^3/uL (1.5-5.0); MEAN CORPUSCULAR HEMOGLOBIN 33.8 pg (27.0-33.0); MEAN CORPUSCULAR HGB CONC 35.4 g/dl (32.0-36.5); MEAN CORPUSCULAR VOLUME 95.5 fl (80.0-96.0); MONO # 0.7 10^3/uL (0.0-0.8); MONO % 8.2 % (2.0-8.0); NEUTROPHILS # 5.6 10^3/uL (1.5-8.5); NEUTROPHILS % 67.6 % (36.0-66.0); PLATELET COUNT, AUTOMATED 267 10^3/uL (150-450); RED BLOOD COUNT 3.55 10^6/uL (4.30-6.10); WHITE BLOOD COUNT 8.3 10^3/uL (4.0-10.0)
[2021-10-30 17:12] LABS: HEMOGLOBIN A1c 5.3 %
[2021-10-30 17:15] LABS: ALBUMIN 3.9 GM/DL (3.2-5.2); ALT/SGPT 29 U/L (12-78); BILIRUBIN,TOTAL 0.4 MG/DL (0.2-1.0); BLOOD UREA NITROGEN 18 MG/DL (7-18); CALCIUM LEVEL 9.9 MG/DL (8.5-10.1); CARBON DIOXIDE LEVEL 27 MEQ/L (21-32); CHLORIDE LEVEL 106 MEQ/L (98-107); CHOLESTEROL LEVEL 146 MG/DL (<200); CREATININE FOR GFR 1.14 MG/DL (0.70-1.30); GLOMERULAR FILTRATION RATE > 60.0 (>56); GLUCOSE, FASTING 177 MG/DL (70-100); HDL CHOLESTEROL 73 MG/DL (>40); LDL CHOLESTEROL 54 MG/DL (<100); NON-HDL-C 73 MG/DL; POTASSIUM SERUM 4.1 MEQ/L (3.5-5.1); SODIUM LEVEL 142 MEQ/L (136-145); TOTAL PROTEIN 7.1 GM/DL (6.4-8.2); TRIGLYCERIDES LEVEL 97 MG/DL (<150)
== END ==
LOC: M SFHCADAM 14:04
PROVIDERS: ATTEND Physician Assistant Medical
DX: E78.2 Mixed hyperlipidemia (principal); E11.9 Type 2 diabetes mellitus without complications; I10 Essential (primary) hypertension; K76.0 Fatty (change of) liver, not elsewhere classified

== ENCOUNTER → 2022-07-21 | Outpatient (REF) | payer MEDICARE ==
[2022-07-21 14:18] LABS: BASO # 0.1 10^3/uL (0.0-0.2); BASO % 1.1 % (0.0-1.0); EOS # 0.2 10^3/uL (0.0-0.5); EOS % 2.3 % (0.0-3.0); HEMOGLOBIN 13.1 g/dl (13.5-17.5); LYMPH # 2.1 10^3/uL (1.5-5.0); LYMPH % 25.2 % (24.0-44.0); MEAN CORPUSCULAR HEMOGLOBIN 33.9 pg (27.0-33.0); MEAN CORPUSCULAR HGB CONC 35.4 g/dl (32.0-36.5); MEAN CORPUSCULAR VOLUME 95.6 fl (80.0-96.0); MONO # 0.8 10^3/uL (0.0-0.8); MONO % 9.3 % (2.0-8.0); NEUTROPHILS # 5.1 10^3/uL (1.5-8.5); NEUTROPHILS % 61.9 % (36.0-66.0); PLATELET COUNT, AUTOMATED 279 10^3/uL (150-450); RED BLOOD COUNT 3.87 10^6/uL (4.30-6.10); WHITE BLOOD COUNT 8.3 10^3/uL (4.0-10.0)
[2022-07-21 14:29] LABS: ALBUMIN 3.8 G/DL (3.2-5.2); ALKALINE PHOSPHATASE 89 U/L (46-116); ALT/SGPT 37 U/L (7.0-40); AST/SGOT 38 U/L (<34); BILIRUBIN,TOTAL 0.8 MG/DL (0.3-1.2); BLOOD UREA NITROGEN 18 MG/DL (9-23); CALCIUM LEVEL 9.3 MG/DL (8.5-10.1); CARBON DIOXIDE LEVEL 27 MMOL/L (20-31); CHLORIDE LEVEL 103 MMOL/L (98-107); CHOLESTEROL LEVEL 170 MG/DL (<200); CHOLESTEROL RISK RATIO 2.82 (<5); CREATININE FOR GFR 1.09 MG/DL (0.70-1.30); GLOMERULAR FILTRATION RATE > 60.0 (>56); GLUCOSE, FASTING 183 MG/DL (60-100); HDL CHOLESTEROL 60.2 MG/DL (>40); NON-HDL-C 110 MG/DL; POTASSIUM SERUM 4.1 MMOL/L (3.5-5.1); SODIUM LEVEL 140 MMOL/L (136-145); THYROID STIMULATING HORMONE 3.182 uIU/ML (0.55-4.78); TOTAL PROTEIN 6.8 G/DL (5.7-8.2); TRIGLYCERIDES LEVEL 184 MG/DL (<150)
[2022-07-21 14:31] LABS: HEMOGLOBIN A1c 5.4 % (4.0-6.0)
[2022-07-21 14:45] LABS: CREATININE, URINE 238.8 MG/DL
[2022-07-21 14:59] LABS: MAU/CREAT RATIO 529.3 MCG/MG (0.0-30.0)
== END ==
LOC: M SFHCADAM 10:45
PROVIDERS: ATTEND Physician Assistant Medical
DX: E78.2 Mixed hyperlipidemia (principal); E11.9 Type 2 diabetes mellitus without complications; I10 Essential (primary) hypertension; K76.0 Fatty (change of) liver, not elsewhere classified; F98.8 Other specified behavioral and emotional disorders with onset usually occurring in childhood and adolescence; Z79.899 Other long term (current) drug therapy

== ENCOUNTER → 2023-11-16 | Outpatient (REF) | payer MEDICARE ==
[~2023-11-16] MED LIST changes: -LOSA100T45 PO; +LOSA100T46 PO
[2023-11-16 17:52] LABS: CREATININE, URINE 138.7 MG/DL
[2023-11-16 17:55] LABS: ALBUMIN 3.9 G/DL (3.2-5.2); ALKALINE PHOSPHATASE 99 U/L (46-116); ALT/SGPT 37 U/L (7.0-40); AST/SGOT 27 U/L (<34); BILIRUBIN,TOTAL 0.5 MG/DL (0.3-1.2); BLOOD UREA NITROGEN 23 MG/DL (9-23); CALCIUM LEVEL 9.9 MG/DL (8.5-10.1); CARBON DIOXIDE LEVEL 25 MMOL/L (20-31); CHLORIDE LEVEL 102 MMOL/L (98-107); CHOLESTEROL LEVEL 169 MG/DL (<200); CHOLESTEROL RISK RATIO 3.77 (<5); CREATININE FOR GFR 1.05 MG/DL (0.70-1.30); GLOMERULAR FILTRATION RATE > 60.0 (>56); GLUCOSE, FASTING 144 MG/DL (60-100); HDL CHOLESTEROL 44.8 MG/DL (>40); NON-HDL-C 124.2 MG/DL; SODIUM LEVEL 136 MMOL/L (136-145); TRIGLYCERIDES LEVEL 216 MG/DL (<150)
[2023-11-16 17:56] LABS: TOTAL 25(OH) VITAMIN D 48.4 NG/ML (20.0-100.0)
[2023-11-16 18:07] LABS: MAU/CREAT RATIO 845.7 MCG/MG (0.0-30.0)
== END ==
LOC: M SFHCADAM 13:18
PROVIDERS: ATTEND Physician Assistant Medical
DX: E11.9 Type 2 diabetes mellitus without complications (principal); I10 Essential (primary) hypertension; E78.2 Mixed hyperlipidemia; K76.0 Fatty (change of) liver, not elsewhere classified; R80.9 Proteinuria, unspecified; Z79.899 Other long term (current) drug therapy

== ENCOUNTER 2024-07-10 07:29 | Day surgery (SDC) | payer MEDICARE ==
[~2024-07-10] VITALS: Ht 180.3 cm; Wt 102.1 kg
[~2024-07-10 07:29] MED LIST changes: +ACET-683 PO; +GLYCOPYRROLATE INJ 0.2 MG/ML 2 ML VIAL As Ordered ONE; +HYDR50TAB PO; +LIDOCAINE 2% 100MG/5ML SDV (FOR ANES.) As Ordered ONE; -LOPI600T; +LOPI600T PO; +VITA200016 PO; +propofoL 200 MG/20 ML VIAL As Ordered ONE
[2024-07-10 09:14] VITALS: TEMP 97
[2024-07-10 09:36] VITALS: BP 145/80; O2SAT 98
== END 2024-07-10 09:41 | disposition home or self-care (01) ==
LOC: M OPP 07:29
PROVIDERS: ATTEND Internal Medicine Gastroenterology
DX: D12.0 Benign neoplasm of cecum (principal); D12.2 Benign neoplasm of ascending colon; D12.5 Benign neoplasm of sigmoid colon; K57.30 Diverticulosis of large intestine without perforation or abscess without bleeding; K64.8 Other hemorrhoids; Z80.0 Family history of malignant neoplasm of digestive organs; Z86.0101 Personal history of adenomatous and serrated colon polyps; Z91.048 Other nonmedicinal substance allergy status; Z79.84 Long term (current) use of oral hypoglycemic drugs; Z79.899 Other long term (current) drug therapy; Z87.891 Personal history of nicotine dependence
CPT/HCPCS: 45385; 88305; J1596

== ENCOUNTER → 2024-07-13 | Outpatient (REF) | payer MEDICARE ==
[~2024-07-13] MED LIST changes: -GLYCOPYRROLATE INJ 0.2 MG/ML 2 ML VIAL As Ordered ONE; -LIDOCAINE 2% 100MG/5ML SDV (FOR ANES.) As Ordered ONE; -propofoL 200 MG/20 ML VIAL As Ordered ONE
[2024-07-13 15:12] LABS: BASO # 0.1 10^3/uL (0.0-0.2); BASO % 0.9 % (0.0-1.0); EOS # 0.2 10^3/uL (0.0-0.5); EOS % 2.8 % (0.0-3.0); HEMATOCRIT 32.3 % (42.0-52.0); HEMOGLOBIN 10.6 g/dl (13.5-17.5); LYMPH % 29.1 % (24.0-44.0); MEAN CORPUSCULAR HGB CONC 32.8 g/dl (32.0-36.5); MEAN CORPUSCULAR VOLUME 91.5 fl (80.0-96.0); MONO # 0.6 10^3/uL (0.0-0.8); NEUTROPHILS # 3.9 10^3/uL (1.5-8.5); NEUTROPHILS % 57.9 % (36.0-66.0); PLATELET COUNT, AUTOMATED 315 10^3/uL (150-450); RED BLOOD COUNT 3.53 10^6/uL (4.30-6.10); WHITE BLOOD COUNT 6.8 10^3/uL (4.0-10.0)
[2024-07-13 15:44] LABS: CREATININE, URINE 182.4 MG/DL
[2024-07-13 15:52] LABS: HEMOGLOBIN A1c 6.8 % (4.0-6.0)
[2024-07-13 15:58] LABS: MAU/CREAT RATIO 1525.2 MCG/MG (0.0-30.0)
[2024-07-13 16:25] LABS: ALBUMIN 3.8 G/DL (3.2-5.2); ALKALINE PHOSPHATASE 75 U/L (40-129); ALT/SGPT 24 U/L (7.0-40); AST/SGOT 21 U/L (<34); BILIRUBIN,TOTAL 0.2 MG/DL (0.3-1.2); BLOOD UREA NITROGEN 21 MG/DL (9-23); CALCIUM LEVEL 9.4 MG/DL (8.5-10.1); CARBON DIOXIDE LEVEL 27 MMOL/L (20-31); CHLORIDE LEVEL 103 MMOL/L (98-107); CHOLESTEROL LEVEL 179 MG/DL (<200); CHOLESTEROL RISK RATIO 3.77 (<5); CREATININE FOR GFR 0.93 MG/DL (0.70-1.30); FREE T4 1.32 NG/DL (0.89-1.76); GLOMERULAR FILTRATION RATE > 60.0 (>56); GLUCOSE, FASTING 182 MG/DL (60-100); HDL CHOLESTEROL 47.4 MG/DL (>40); LDL CHOLESTEROL 84.6 MG/DL (<100); NON-HDL-C 131.6 MG/DL; POTASSIUM SERUM 4.2 MMOL/L (3.5-5.1); SODIUM LEVEL 140 MMOL/L (136-145); TOTAL 25(OH) VITAMIN D 42.5 NG/ML (20.0-100.0); TOTAL PROTEIN 6.9 G/DL (5.7-8.2); TRIGLYCERIDES LEVEL 235 MG/DL (<150)
== END ==
LOC: M SFHCADAM 09:16
PROVIDERS: ATTEND Physician Assistant Medical
DX: E11.9 Type 2 diabetes mellitus without complications (principal); I10 Essential (primary) hypertension; E78.2 Mixed hyperlipidemia; K76.0 Fatty (change of) liver, not elsewhere classified; R80.9 Proteinuria, unspecified; E55.9 Vitamin D deficiency, unspecified

== ENCOUNTER → 2024-08-24 | Outpatient (REF) | payer MEDICARE ==
[2024-08-24 14:49] LABS: FERRITIN 7.4 NG/ML (10.5-307.3); FOLATE 8.4 NG/ML (>5.4)
[2024-08-24 14:57] LABS: PERCENT SATURATION 8.9 % (19.7-50.0)
== END ==
LOC: M SFHCADAM 08:12
PROVIDERS: ATTEND Physician Assistant Medical
DX: D64.9 Anemia, unspecified (principal)

== ENCOUNTER → 2024-12-14 | Outpatient (REF) | payer MEDICARE ==
[~2024-12-14] MED LIST changes: +HYDR12.510 PO; -HYDR12CA PO
== END ==
LOC: M SFHCPLAZ 16:21
PROVIDERS: ATTEND Family Medicine
DX: Z53.1 Procedure and treatment not carried out because of patient's decision for reasons of belief and group pressure (principal)

== ENCOUNTER → 2024-12-18 | Outpatient (REF) | payer MEDICARE ==
[~2024-12-18] MED LIST changes: +FERR325T3 PO; +FURO20TA2 PO; +TORS20TA2 PO
[2024-12-18 17:24] LABS: ALT/SGPT 72.0 U/L (7.0-40); AST/SGOT 51.0 U/L (<34); CALCIUM LEVEL 8.1 MG/DL (8.3-10.6); CARBON DIOXIDE LEVEL 26.0 MMOL/L (20-31); CHLORIDE LEVEL 105.0 MMOL/L (98-107); CHOLESTEROL LEVEL 116.0 MG/DL (<200); CHOLESTEROL RISK RATIO 3.48 (<5); CREATININE FOR GFR 1.34 MG/DL (0.70-1.30); GLOMERULAR FILTRATION RATE 60.7 (>49); IRON (FE) 15.0 UG/DL (65-175); LDL CHOLESTEROL 57.7 MG/DL (<100); NON-HDL-C 82.7 MG/DL; PERCENT SATURATION 4.1 % (19.7-50.0); POTASSIUM SERUM 4.1 MMOL/L (3.5-5.1); SODIUM LEVEL 143.0 MMOL/L (136-145); TRIGLYCERIDES LEVEL 125.0 MG/DL (<150)
[2024-12-18 17:26] LABS: TOTAL 25(OH) VITAMIN D 50.6 NG/ML (20.0-100.0)
[2024-12-18 17:27] LABS: VITAMIN B12 LEVEL 838.0 PG/ML (211-911)
[2024-12-18 17:29] LABS: PLATELET COUNT, AUTOMATED 288 10^3/uL (150-450)
[2024-12-18 18:27] LABS: ESTIMATED AVERAGE GLUCOSE 174.0 MG/DL (60-110)
== END ==
LOC: M SFHCADAM 14:12
PROVIDERS: ATTEND Physician Assistant Medical
DX: D50.9 Iron deficiency anemia, unspecified (principal); E53.8 Deficiency of other specified B group vitamins; I10 Essential (primary) hypertension; E11.9 Type 2 diabetes mellitus without complications; K21.9 Gastro-esophageal reflux disease without esophagitis; K76.0 Fatty (change of) liver, not elsewhere classified; R60.0 Localized edema; E55.9 Vitamin D deficiency, unspecified; R06.02 Shortness of breath

== ENCOUNTER → 2024-12-18 | Outpatient (CLI) | payer MEDICARE | LOC: M ADAMS 14:21 | PROVIDERS: ATTEND Physician Assistant Medical | DX: R06.02 Shortness of breath (principal) ==

== ENCOUNTER → 2024-12-25 | Outpatient (REF) | payer MEDICARE ==
[2024-12-25 17:04] LABS: PLATELET COUNT, AUTOMATED 349 10^3/uL (150-450)
== END ==
LOC: M SFHCADAM 13:33
PROVIDERS: ATTEND Physician Assistant Medical
DX: D50.0 Iron deficiency anemia secondary to blood loss (chronic) (principal)

== ENCOUNTER 2025-01-02 07:05 | Outpatient (CLI) | payer MEDICARE ==
[~2025-01-02] VITALS: Ht 180.3 cm; Wt 104.5 kg
[~2025-01-02 07:05] MED LIST changes: +ALBUTEROL SULFATE 2.5 MG/0.5 ML INH CONCENTRATE NEB SOLN INH PRN; +EPINEPHrine INJ 1 MG/ML 1ML AMP IM PRN; +diphenhydrAMINE 50 MG/ML VIAL IV PRN
[2025-01-02] MEDS: ACETAMINOPHEN 650 MG PO ONE (07:39)
[2025-01-02] MEDS: dexAMETHasone 4 MG/ML 1 ML VIAL IV ONE (07:40)
[2025-01-02] MEDS: IRON SUCROSE 300 MG in NS 250 ML OVER 90 MIN. IV ONE (08:30)
== END 2025-01-02 10:38 | disposition home or self-care (01) ==
LOC: M INFU 07:05
PROVIDERS: ATTEND Physician Assistant Medical
DX: D64.9 Anemia, unspecified (principal)
CPT/HCPCS: 96365; 96375; J1100; J1756

== ENCOUNTER → 2025-01-04 | Outpatient (REF) | payer MEDICARE ==
[~2025-01-04] MED LIST changes: -ALBUTEROL SULFATE 2.5 MG/0.5 ML INH CONCENTRATE NEB SOLN INH PRN; -EPINEPHrine INJ 1 MG/ML 1ML AMP IM PRN; -diphenhydrAMINE 50 MG/ML VIAL IV PRN
[2025-01-04 13:55] LABS: PLATELET COUNT, AUTOMATED 357 10^3/uL (150-450)
== END ==
LOC: M SFHCADAM 08:03
PROVIDERS: ATTEND Physician Assistant Medical
DX: D50.0 Iron deficiency anemia secondary to blood loss (chronic) (principal)

== ENCOUNTER → 2025-01-10 | Outpatient (REF) | payer MEDICARE ==
[2025-01-10 18:14] LABS: PLATELET COUNT, AUTOMATED 341 10^3/uL (150-450)
== END ==
LOC: M SFHCADAM 13:19
PROVIDERS: ATTEND Physician Assistant Medical
DX: K31.819 Angiodysplasia of stomach and duodenum without bleeding (principal)

== ENCOUNTER 2025-01-16 07:28 | Outpatient (CLI) | payer MEDICARE ==
[~2025-01-16] VITALS: Ht 180.3 cm; Wt 104.5 kg
[~2025-01-16 07:28] MED LIST changes: +ALBUTEROL SULFATE 2.5 MG/0.5 ML INH CONCENTRATE NEB SOLN INH PRN; +EPINEPHrine INJ 1 MG/ML 1ML AMP IM PRN; +diphenhydrAMINE 50 MG/ML VIAL IV PRN
[2025-01-16] MEDS: ACETAMINOPHEN 325 MG TAB PO ONE (07:55)
[2025-01-16 08:02] VITALS: BP 122/78; O2SAT 98
[2025-01-16] MEDS: IRON SUCROSE 300 MG in NS 250 ML IV ONE (08:23)
[2025-01-16 10:05] VITALS: BP 120/73; O2SAT 98
== END 2025-01-16 10:05 | disposition home or self-care (01) ==
LOC: M INFU 07:28
PROVIDERS: ATTEND Physician Assistant Medical
DX: D64.9 Anemia, unspecified (principal); Z91.011 Allergy to milk products
CPT/HCPCS: 96365; 96366; J1100; J1756

== ENCOUNTER 2025-01-30 07:34 | Outpatient (CLI) | payer MEDICARE ==
[~2025-01-30] VITALS: Ht 180.3 cm; Wt 100.0 kg
[2025-01-30 07:40] VITALS: BP 165/88; O2SAT 96
[2025-01-30] MEDS: ACETAMINOPHEN 650 MG PO ONE (07:49)
[2025-01-30] MEDS: IRON SUCROSE 300 MG in NS 250 ML OVER 90 MIN. IV ONE (08:12)
[2025-01-30 09:55] VITALS: BP 142/78; O2SAT 96
== END 2025-01-30 10:00 ==
LOC: M INFU 07:34
PROVIDERS: ATTEND Physician Assistant Medical
DX: D64.9 Anemia, unspecified (principal); Z91.011 Allergy to milk products
CPT/HCPCS: 96365; 96366; J1100; J1756

== ENCOUNTER → 2025-02-27 | Outpatient (CLI) | payer MEDICARE ==
[~2025-02-27] MED LIST changes: -ALBUTEROL SULFATE 2.5 MG/0.5 ML INH CONCENTRATE NEB SOLN INH PRN; -EPINEPHrine INJ 1 MG/ML 1ML AMP IM PRN; -diphenhydrAMINE 50 MG/ML VIAL IV PRN
== END ==
LOC: M EKG 10:27
PROVIDERS: ATTEND Physician Assistant
DX: I48.0 Paroxysmal atrial fibrillation (principal); Z53.9 Procedure and treatment not carried out, unspecified reason

== ENCOUNTER → 2025-03-08 | Outpatient (CLI) | payer MEDICARE | LOC: M SLEEP HO 10:29 | PROVIDERS: ATTEND Physician Assistant | DX: G47.9 Sleep disorder, unspecified (principal); I27.81 Cor pulmonale (chronic); I50.22 Chronic systolic (congestive) heart failure | CPT/HCPCS: 36415; 80048; 83735; 85025; G0399 ==

== ENCOUNTER → 2025-03-08 | Outpatient (CLI) | payer MEDICARE ==
[2025-03-08 14:44] LABS: BASO # 0.1 10^3/uL (0.0-0.2); BASO % 1.1 % (0.0-1.0); EOS # 0.2 10^3/uL (0.0-0.5); EOS % 2.5 % (0.0-3.0); LYMPH # 2.1 10^3/uL (1.5-5.0); LYMPH % 24.8 % (24.0-44.0); MONO # 0.8 10^3/uL (0.0-0.8); MONO % 8.9 % (2.0-8.0); NEUTROPHILS # 5.3 10^3/uL (1.5-8.5); NEUTROPHILS % 62.3 % (36.0-66.0); PLATELET COUNT, AUTOMATED 288 10^3/uL (150-450)
[2025-03-08 14:45] LABS: CALCIUM LEVEL 9.1 MG/DL (8.3-10.6); CARBON DIOXIDE LEVEL 30.0 MMOL/L (20-31); CHLORIDE LEVEL 98.0 MMOL/L (98-107); CREATININE FOR GFR 1.18 MG/DL (0.70-1.30); GLOMERULAR FILTRATION RATE 70.6 (>49); MAGNESIUM LEVEL 1.2 MG/DL (1.8-2.4); POTASSIUM SERUM 3.6 MMOL/L (3.5-5.1); SODIUM LEVEL 141.0 MMOL/L (136-145)
== END ==
LOC: M LABDRWAD 09:23
PROVIDERS: ATTEND Physician Assistant
DX: I50.22 Chronic systolic (congestive) heart failure (principal)

== ENCOUNTER → 2025-04-11 | Outpatient (REF) | payer MEDICARE ==
[2025-04-11 15:28] LABS: CALCIUM LEVEL 9.2 MG/DL (8.3-10.6); CARBON DIOXIDE LEVEL 28.0 MMOL/L (20-31); CHLORIDE LEVEL 98.0 MMOL/L (98-107); CREATININE FOR GFR 1.11 MG/DL (0.70-1.30); GLOMERULAR FILTRATION RATE 76.0 (>49); MAGNESIUM LEVEL 1.2 MG/DL (1.8-2.4); POTASSIUM SERUM 4.0 MMOL/L (3.5-5.1); SODIUM LEVEL 140.0 MMOL/L (136-145)
== END ==
LOC: M LABDRWAD 14:34
PROVIDERS: ATTEND Physician Assistant
DX: I50.22 Chronic systolic (congestive) heart failure (principal)

== ENCOUNTER → 2025-04-11 | Outpatient (REF) | payer MEDICARE ==
[2025-04-11 13:48] LABS: BASO # 0.1 10^3/uL (0.0-0.2); BASO % 0.9 % (0.0-1.0); EOS # 0.1 10^3/uL (0.0-0.5); EOS % 1.9 % (0.0-3.0); LYMPH # 1.8 10^3/uL (1.5-5.0); LYMPH % 28.7 % (24.0-44.0); MONO # 0.7 10^3/uL (0.0-0.8); MONO % 11.4 % (2.0-8.0); NEUTROPHILS # 3.6 10^3/uL (1.5-8.5); NEUTROPHILS % 56.8 % (36.0-66.0); PLATELET COUNT, AUTOMATED 286 10^3/uL (150-450)
[2025-04-11 14:07] LABS: ALT/SGPT 13.0 U/L (7.0-40); AST/SGOT 18.0 U/L (<34); CALCIUM LEVEL 9.1 MG/DL (8.3-10.6); CARBON DIOXIDE LEVEL 28.0 MMOL/L (20-31); CHLORIDE LEVEL 100.0 MMOL/L (98-107); CHOLESTEROL LEVEL 127.0 MG/DL (<200); CHOLESTEROL RISK RATIO 3.3 (<5); CREATININE FOR GFR 1.13 MG/DL (0.70-1.30); ESTIMATED AVERAGE GLUCOSE 105.0 MG/DL (60-110); GLOMERULAR FILTRATION RATE 74.4 (>49); IRON (FE) 70.0 UG/DL (65-175); LDL CHOLESTEROL 53.2 MG/DL (<100); MAGNESIUM LEVEL 1.2 MG/DL (1.8-2.4); NON-HDL-C 88.6 MG/DL; PERCENT SATURATION 19.8 % (19.7-50.0); POTASSIUM SERUM 3.8 MMOL/L (3.5-5.1); SODIUM LEVEL 140.0 MMOL/L (136-145); TOTAL 25(OH) VITAMIN D 56.0 NG/ML (20.0-100.0); TRIGLYCERIDES LEVEL 177.0 MG/DL (<150)
[2025-04-11 14:09] LABS: FREE T4 1.42 NG/DL (0.89-1.76); VITAMIN B12 LEVEL 565.0 PG/ML (211-911)
== END ==
LOC: M SFHCADAM 08:52
PROVIDERS: ATTEND Physician Assistant Medical
DX: K31.819 Angiodysplasia of stomach and duodenum without bleeding (principal); D50.0 Iron deficiency anemia secondary to blood loss (chronic); E11.29 Type 2 diabetes mellitus with other diabetic kidney complication; I11.0 Hypertensive heart disease with heart failure; I50.42 Chronic combined systolic (congestive) and diastolic (congestive) heart failure; Z79.899 Other long term (current) drug therapy